=== PATIENT | male | born 1960 | race American Indian/Alaskan Native ===

== ENCOUNTER 2018-01-20 18:01 | Inpatient (IN) | payer OTHER ==
[2018-01-20] MEDS ORDERED: Albuterol-Ipratrop 3 mg / 0.5 (3 ml) UD IH STA (18:29)
--- NOTE | 2018-01-20 18:36 | ED PDOC ---
Arrival/HPI - General Chief Complaint: Shortness Of Breath Time Seen by Provider: 01/20/18 18:13 Historian: Patient - History of Present Illness Narrative History of Present Illness (Text): 01/20/18 18:27 57 y/o M w/ h/o of CHF and paroxysmal atrial fibrillation, presents to the Emergency Department accompanied by his mother complaining of worsening shortness of breath since 01/13/2018. Patient states dyspnea is worsened with exertion, noting with difficulty ambulating up stairs. He visited his PMD last week who referred him to Dr. Esteban(cardiology) for cardiac evaluation. Because of recent plans of moving to [place], patient desired to postpone further diagnostic testing after his move. However, due to worsening symptoms in addition to noting a distended abdomen prompted him to present for further evaluation. He denies any associated chest pain, abdominal pain, nausea or vomiting. He denies any cough, fever or chills. He denies any lower extremity edema. He denies smoking cigarettes,drinking alcohol or any substance use. Specialist:Dr. Oquendo(cardiology) Time/Duration: 1 week Symptom Onset: Gradual Symptom Course: Unchanged Quality: Tightness, Fullness Severity Level: Moderate Activities at Onset: Rest Context: Home Past Medical History - Provider Review Nursing Documentation Reviewed: Yes - Travel History Have you recently traveled outside US w/in the past 3 mons?: No - Infectious Disease Hx of Infectious Diseases: None - Tetanus Immunization Tetanus Immunization: Unknown - Cardiac Hx Cardiac Disorders: Yes (CARDIOMEGALY) Hx Cardiac Arrhythmia: Yes Hx Congestive Heart Failure: Yes Hx Hypertension: Yes - Pulmonary Hx Respiratory Disorders: No - Neurological Hx Neurological Disorder: No - HEENT Hx HEENT Disorder: No - Renal Hx Renal Disorder: No - Endocrine/Metabolic Hx Endocrine Disorders: No - Hematological/Oncological Hx Blood Disorders: No - Integumentary Hx Dermatological Disorder: Yes (TATTOOS ARMS) - Musculoskeletal/Rheumatological Hx Musculoskeletal Disorders: Yes Hx Falls: No Hx Gout: Yes - Gastrointestinal Hx Gastrointestinal Disorders: No - Genitourinary/Gynecological Hx Genitourinary Disorders: No - Psychiatric Hx Psychophysiologic Disorder: No Hx Depression: No Hx Emotional Abuse: No Hx Physical Abuse: No Hx Substance Use: No - Past Surgical History Past Surgical History: No Previous - Suicidal Assessment Feels Threatened In Home Enviroment: No Family/Social History - Physician Review Nursing Documentation Reviewed: Yes Family/Social History: No Known Family HX Smoking Status: Former Smoker Hx Alcohol Use: Yes ([employer]EEK[employer]CO[employer]INKS H/O QUIT) Hx Substance Use: No Hx Substance Use Treatment: No Allergies/Home Meds Allergies/Adverse Reactions: Allergies No Known Allergies Allergy (Verified 08/06/14 11:38) Home Medications: Home Meds Medication Instructions Recorded Confirmed Allopurinol 300 mg PO DAILY 01/08/14 01/21/18 Atenolol 100 mg PO DAILY 01/08/14 01/21/18 Furosemide [Lasix] 160 mg PO BID 01/08/14 01/21/18 Potassium Chloride [Klor-Con M20] 20 meq PO BID 01/08/14 01/21/18 Warfarin [Coumadin] 8 mg PO DAILY 08/06/14 01/21/18 diltiaZEM [Cardizem] 60 mg PO TID 08/06/14 01/21/18 Review of Systems - Physician Review All systems were reviewed & negative as marked: Yes - Review of Systems Constitutional: absent: Fevers Respiratory: SOB. absent: Cough Cardiovascular: CURIEL. absent: Chest Pain, Edema Gastrointestinal: absent: Abdominal Pain, Diarrhea, Nausea, Vomiting Musculoskeletal: absent: Back Pain, Neck Pain Neurological: absent: Headache, Dizziness Physical Exam Vital Signs Reviewed: Yes Vital Signs Temp Pulse Resp BP Pulse Ox 01/20/18 21:30 140/83 01/20/18 19:16 85 20 145/92 H 95 01/20/18 18:59 18 98 01/20/18 18:11 97.5 F L 77 18 135/66 95 Temperature: Afebrile Blood Pressure: Normal Pulse: Regular Respiratory Rate: Normal Appearance: Positive for: Well-Appearing, Non-Toxic, Comfortable Pain Distress: None Mental Status: Positive for: Alert and Oriented X 3 - Systems Exam Head: Present: Atraumatic, Normocephalic Pupils: Present: PERRL Extroacular Muscles: Present: EOMI Conjunctiva: Present: Normal Mouth: Present: Moist Mucous Membranes Neck: Present: Normal Range of Motion Respiratory/Chest: Present: Clear to Auscultation, Decreased Breath Sounds, Other (no tenderness to chest wall). No: Respiratory Distress, Accessory Muscle Use Cardiovascular: Present: Regular Rate and Rhythm, Normal S1, S2. No: Murmurs Abdomen: Present: Distention (+firm). No: Tenderness, Peritoneal Signs Back: Present: Normal Inspection Upper Extremity: Present: Normal Inspection. No: Cyanosis, Edema Lower Extremity: Present: Normal Inspection, NORMAL PULSES, Capillary Refill < 2 s. No: Edema, CALF TENDERNESS, Erythema Neurological: Present: GCS=15, CN II-XII Intact, Speech Normal Skin: Present: Warm, Dry, Normal Color. No: Rashes Psychiatric: Present: Alert, Oriented x 3, Normal Insight, Normal Concentration Medical Decision Making ED Course and Treatment: 01/20/18 18:39 Impression: 57 year old male presents to the Emergency Department complaining of CURIEL. Differential Diagnosis included but are not limited to: CHF exacerbation Arrhythmia ACS Pneumonia PE Plan: -- VBG --Lasix -- Labs -- CXR -- Duoneb -- Urinalysis -- Reassess and disposition Prior Visits: Notes and results from previous visits were reviewed. Progress Notes: 01/20/18 22:14 Labs reviewed and BNP noted to be elevated. Lasix ordered. Patient reassessed and reports mild relief from nebulizer treatment. Discussion of case with Dr. Pacheco(house staff) who accepts patient for admission. Patient updated on plan for admission and is in agreement. - Lab Interpretations Lab Results: 01/21/18 08:20 01/21/18 08:20 Lab Results 01/21/18 09:00: TSH 3rd Generation 3.54 01/21/18 08:20: PT 35.6 H, INR 3.03 01/21/18 08:20: Hemoglobin A1c 6.2 01/21/18 08:20: Sodium 142, Chloride 102, Potassium 5.1 H, Carbon Dioxide 32, Anion Gap 13, BUN 24 H, Creatinine 1.3, Est GFR ( Amer) > 60, Est GFR ( Non-Af Amer) 57, Random Glucose 171 H, Calcium 8.8, Phosphorus 3.8, Magnesium 2.5 H, Total Bilirubin 0.8, AST 14 L D, ALT 12, Alkaline Phosphatase 132 H, Troponin I < 0.01, Total Protein 7.4, Albumin 3.7, Globulin 3.7, Albumin/ Globulin Ratio 1.0 L, Triglycerides 86, Cholesterol 132, LDL Cholesterol Direct 86, HDL Cholesterol 21 L 01/21/18 08:20: WBC 6.5, RBC 6.63 H, Hgb 13.4 L, Hct 49.8, MCV 75.1 L, MCH 20.2 L, MCHC 26.9 L, RDW 20.2 H, Plt Count 126, Gran % 92.9 H, Lymph % (Auto) 5.6 L, [place] % (Auto) 1.1, Eos % (Auto) 0.2 L, Baso % (Auto) 0.2, Gran # 6.03, Lymph # ( Auto) 0.4 L, [place] # (Auto) 0.1, Eos # (Auto) 0.0, Baso # (Auto) 0.01, Neutrophils % (Manual) 92 H, Band Neutrophils % 1, Lymphocytes % (Manual) 6 L, Monocytes % (Manual) 1, Platelet Evaluation Normal, Hypochromasia 2+ 01/21/18 07:24: POC Glucose (mg/dL) 192 H 01/21/18 06:36: pCO2 54 H, pO2 46.0 L, HCO3 31.2 H, ABG pH 7.37, ABG Total CO2 32.9 H, ABG O2 Saturation 79.8 L, ABG O2 Content 15.3, ABG Base Excess 4.4 H, ABG Hemoglobin 14.3, ABG Carboxyhemoglobin 3.7 H, POC ABG HHb (Measured) 19.2 H , ABG Methemoglobin 1.2, ABG O2 Capacity 19.2, Hgb O2 Saturation 76.0 L, FiO2 21.0 01/21/18 01:15: Free T4 1.00, Thyroxine (T4) 7.2 01/21/18 01:15: Troponin I < 0.01, Free T3 pg/mL 3.37 01/21/18 00:45: PT 34.4 H, INR 2.95, APTT 45.1 H 01/20/18 21:39: pCO2 70 H, pO2 26.0 L*, HCO3 36.9 H, ABG pH 7.33 L, ABG Total CO2 39.0 H, ABG O2 Saturation 49.5 L, ABG O2 Content 8.9 L, ABG Base Excess 8.3 H, ABG Hemoglobin 13.2, ABG Carboxyhemoglobin 2.7 H, POC ABG HHb (Measured) 48.7 H, ABG Methemoglobin 0.7, ABG O2 Capacity 18.0, Hgb O2 Saturation 47.8 L, FiO2 21.0 01/20/18 19:23: Urine Color Yellow, Urine Appearance Clear, Urine pH 6.0, Ur Specific [place] 1.010, Urine Protein Negative, Urine Glucose (UA) Negative, Urine Ketones Negative, Urine Blood Negative, Urine Nitrate Negative, Urine Bilirubin Negative, Urine Urobilinogen 0.2, Ur Leukocyte Esterase Negative 01/20/18 19:00: Troponin I < 0.01 01/20/18 19:00: TSH 3rd Generation 5.01 H 01/20/18 19:00: D-Dimer, Quantitative < 200 01/20/18 19:00: Sodium 143, Chloride 102, Potassium 4.9, Carbon Dioxide 35 H, Anion Gap 11, BUN 25 H, Creatinine 1.4, Est GFR ( Amer) > 60, Est GFR ( Non-Af Amer) 53, Random Glucose 96, Calcium 8.5, Magnesium 2.6 H, Total Bilirubin 0.7, AST 34, ALT 10, Alkaline Phosphatase 123, NT-Pro-B Natriuret Pep 943 H, Total Protein 7.5, Albumin 3.8, Globulin 3.6, Albumin/Globulin Ratio 1.1 01/20/18 19:00: WBC 7.3, RBC 6.78 H, Hgb 13.8 L, Hct 51.8, MCV 76.4 L, MCH 20.4 L, MCHC 26.6 L, RDW 20.8 H, Plt Count 125, Gran % 70.1 H, Lymph % (Auto) 17.4 L , [place] % (Auto) 4.0, Eos % (Auto) 8.0 H, Baso % (Auto) 0.5, Gran # 5.11, Lymph # (Auto) 1.3, [place] # (Auto) 0.3, Eos # (Auto) 0.6, Baso # (Auto) 0.04 01/20/18 18:40: pO2 42, VBG pH 7.28 L, VBG pCO2 80.0 H*, VBG HCO3 37.6 H, VBG Total CO2 40.1 H, VBG O2 Sat (Calc) 69.6 H, VBG Base Excess 7.7 H, VBG Potassium 5.1, Sodium 141.0, Chloride 103.0, Glucose 95, Lactate 1.7, FiO2 21.0 , Venous Blood Potassium 5.1 - RAD Interpretation Radiology Orders: 01/20/18 18:30 CHEST PORTABLE [RAD] Stat - Medication Orders Current Medication Orders: Albuterol/Ipratropium (Duoneb 3 Mg/0.5 Mg (3 Ml) Ud) 3 ml IH Q2H PRN PRN Reason: Shortness of Breath Albuterol/Ipratropium (Duoneb 3 Mg/0.5 Mg (3 Ml) Ud) 3 ml IH [id number] [facility] Last Admin: 01/21/18 13:55 Dose: 3 ml Allopurinol (Zyloprim) 300 mg PO DAILY [facility] Last Admin: 01/21/18 10:10 Dose: 300 mg Diltiazem HCl (Cardizem) 60 mg PO TID [facility] Last Admin: 01/21/18 13:20 Dose: 60 mg [facility] Pulse and Blood Pressure Document 01/21/18 13:20 (Rec: 01/21/18 13:20 [place] [id number]) Pulse Pulse Rate (60-90) 85 Blood Pressure Blood Pressure (100/60-150/90) 133/79 Famotidine (Pepcid) 40 mg PO HS MARIAH Furosemide (Lasix) 40 mg IVP Q12 [facility] Last Admin: 01/21/18 10:13 Dose: Comments: not given MAR Blood Pressure Document 01/21/18 10:13 (Rec: 01/21/18 10:14 [place] [id number]) Blood Pressure Blood Pressure (100/60-150/90) 154/87 IVP Administration Document 01/21/18 10:13 (Rec: 01/21/18 10:14 [place] [id number]) Charges for Administration # of IVP Administrations 0 Insulin Human Regular (Humulin R Low) 0 units SC ACHS MARIAH PRN Reason: Protocol Last Admin: 01/21/18 13:04 Dose: Not Given Non-Admin Reason: Patient in Cardiology Lactic Acid (Lac-Hydrin 12% Lotion (225 G)) 0 gm EXT BID MARIAH Methylprednisolone (Solu-Medrol) 40 mg IVP Q12 [facility] Last Admin: 01/21/18 10:14 Dose: 40 mg IVP Administration Document 01/21/18 10:14 (Rec: 01/21/18 10:14 [place] [id number]) Charges for Administration # of IVP Administrations 1 Metoprolol Succinate (Toprol Xl) 100 mg PO BRK MARIAH Last Admin: 01/21/18 08:27 Dose: 100 mg MAR Pulse and Blood Pressure Document 01/21/18 08:27 DH (Rec: 01/21/18 08:27 [id number] Pulse Pulse Rate (60-90) 84 Blood Pressure Blood Pressure (100/60-150/90) 143/88 Warfarin Sodium (Coumadin) 8 mg PO 1800 MARIAH PRN Reason: Protocol Discontinued Medications Albuterol/Ipratropium (Duoneb 3 Mg/0.5 Mg (3 Ml) Ud) 3 ml IH STAT STA Stop: 01/20/18 18:30 Last Admin: 01/20/18 18:41 Dose: 3 ml Furosemide (Lasix) 20 mg IVP STAT STA Stop: 01/20/18 20:24 Last Admin: 01/20/18 21:30 Dose: 20 mg MAR Blood Pressure Document 01/20/18 21:30 CNR (Rec: 01/20/18 21:30 CNR [id number]) Blood Pressure Blood Pressure (100/60-150/90) 140/83 IVP Administration Document 01/20/18 21:30 CNR (Rec: 01/20/18 21:30 CNR [id number]) Charges for Administration # of IVP Administrations 1 - Scribe Statement The provider has reviewed the documentation as recorded by the Scribe Sundar Mcdonough. All medical record entries made by the Scribe were at my direction and personally dictated by me. I have reviewed the chart and agree that the record accurately reflects my personal performance of the history, physical exam, medical decision making, and the department course for this patient. I have also personally directed, reviewed, and agree with the discharge instructions and disposition. Disposition/Present on Arrival - Present on Arrival Any Indicators Present on Arrival: No History of DVT/PE: No History of Uncontrolled Diabetes: No Urinary Catheter: No History of Decub. Ulcer: No History Surgical Site Infection Following: None - Disposition Have Diagnosis and Disposition been Completed?: Yes Diagnosis: CHF exacerbation Disposition: HOSPITALIZED Disposition Time: 22:18 Patient Plan: Admission Condition: STABLE
[2018-01-20 18:47] LABS: VENOUS BLOOD GAS BASE EXCESS 7.7 mmol/L (0.0-2.0); VENOUS BLOOD GAS PO2 42 mm/Hg (30-55); VENOUS BLOOD PH 7.28 (7.32-7.43)
[2018-01-20 19:07] LABS: BASO # 0.04 K/mm3 (0.0-2.0); BASO % 0.5 % (0.0-3.0); EOS # 0.6 (0.0-0.7); GRAN # 5.11 (1.4-6.5); GRAN % 70.1 % (50.0-68.0); HEMOGLOBIN 13.8 g/dL (14.0-18.0); LYMPH # 1.3 (1.2-3.4); LYMPH % 17.4 % (22.0-35.0); MEAN CELL VOLUME 76.4 fl (80.0-105.0); MEAN CORPUSCULAR HEMOGLOBIN 20.4 pg (25.0-35.0); MEAN CORPUSCULAR HGB CONC 26.6 g/dl (31.0-37.0); MONO # 0.3 (0.1-0.6); PLATELET COUNT 125 10^3/uL (120.0-450.0); RBC 6.78 10^6/uL (3.5-6.1); RED CELL DISTRIBUTION WIDTH 20.8 % (11.5-14.5); WHITE BLOOD COUNT 7.3 10^3/ul (4.5-11.0)
[2018-01-20 19:18] LABS: ALB/GLOB RATIO 1.1 (1.1-1.8); ALBUMIN 3.8 g/dL (3.0-4.8); ALT/SGPT 10 U/L (7-56); AST/SGOT 34 U/L (17-59); BLOOD UREA NITROGEN 25 mg/dL (7-21); CALCIUM 8.5 mg/dL (8.4-10.5); GFR NON-AFRICAN AMERICAN 53
[2018-01-20 19:27] LABS: B-TYPE NATRIURETIC PEPTIDE 943 pg/mL (0-450)
[2018-01-20 19:27] LABS: URINE APPEARANCE CLEAR (CLEAR); URINE BILIRUBIN NEGATIVE (NEGATIVE); URINE BLOOD NEGATIVE (NEGATIVE); URINE COLOR YELLOW (YELLOW); URINE GLUCOSE (UA) NEGATIVE (NEGATIVE); URINE LEUKOCYTE ESTERASE NEGATIVE Leu/uL (NEGATIVE); URINE PROTEIN NEGATIVE mg/dL (<30 mg/dL); URINE UROBILINOGEN 0.2 E.U./dL (<1 E.U./dL)
[2018-01-20 21:42] LABS: ARTERIAL BLOOD GAS HCO3 36.9 mmol/L (21-28); ARTERIAL BLOOD GAS HEMOGLOBIN 13.2 g/dL (11.7-17.4); ARTERIAL BLOOD GAS O2 CONTENT 8.9 ML/dl (15-23); ARTERIAL BLOOD GAS O2 SAT 49.5 % (95-98); ARTERIAL BLOOD GAS PCO2 70 mm/Hg (35-45); ARTERIAL BLOOD GAS PH 7.33 (7.35-7.45)
[2018-01-20] MEDS: Insulin Reg-LOW-Coverage SC SCH (22:58)
[2018-01-20] MEDS ORDERED: Albuterol-Ipratrop 3 mg / 0.5 (3 ml) UD IH PRN (23:54)
--- NOTE | 2018-01-21 00:10 | CP.PCM.HP ---
<Rebeca Rodriguez - Last Filed: 01/21/18 03:58> History of Present Illness - History of Present Illness History of Present Illness: Rebeca Rodriguez, PGY-1 H&P for Hospitalist Service This is a 57 year old male with PMH of CHF (EF in 2014 64%), paroxysmal afib on warfarin, DM, and HTN presenting to the ED for one week history of SOB. Symptoms started last and patient says he has trouble walking a few steps and gets short of breath. He went to his PMD on Wednesday who referred to Dr. Esteban for cardiology work up. However patient was unable to follow up. Patient states his last hospital admission for CHF exacerbation was in 2010. He is planing to move to [place] soon. At this time, he denies CP, SOB, fevers, headaches, nausea, vomiting, chills, abdominal pain, back pain, urinary complaints, numbness, tingling, swelling, recent travel and recent sickness. 12 point ROS noted here, otherwise unremarkable. In ED, CXR showed cardiomegaly and vascular congestion (interpreted by me). BNP was 943, troponin <0.01. ABG showed pH of 7.33, CO2 70 and bicarb of 36.9. Given 20mg IVP Lasix and duonebs. PMD: Dr. Bhatia PMH: as above SH: denies smoking, drinking and drugs Sx: denies surgeries FH: father had bladder cancer All: NKDA Meds: Lasix 80mg BID, diltiazem 60mg q8, warfarin 8mg daily, glimiperide 4mg BID , carvedilol 25mg BID Present on Admission - Present on Admission Any Indicators Present on Admission: No Past Patient History - Infectious Disease Hx of Infectious Diseases: None - Tetanus Immunizations Tetanus Immunization: Unknown - Past Social History Smoking Status: Former Smoker - CARDIAC Hx Cardiac Disorders: Yes (CARDIOMEGALY) Hx Congestive Heart Failure: Yes Hx Hypertension: Yes - PULMONARY Hx Respiratory Disorders: No - NEUROLOGICAL Hx Neurological Disorder: No - HEENT Hx HEENT Problems: No - RENAL Hx Chronic Kidney Disease: No - ENDOCRINE/METABOLIC Hx Endocrine Disorders: Yes Hx Diabetes Mellitus Type 2: Yes - HEMATOLOGICAL/ONCOLOGICAL Hx Blood Disorders: No - INTEGUMENTARY Hx Dermatological Problems: No - MUSCULOSKELETAL/RHEUMATOLOGICAL Hx Musculoskeletal Disorders: Yes Hx Gout: Yes Hx Unsteady Gait: No - GASTROINTESTINAL Hx Gastrointestinal Disorders: No - GENITOURINARY/GYNECOLOGICAL Hx Genitourinary Disorders: No - PSYCHIATRIC Hx Psychophysiologic Disorder: No Hx Depression: No Hx Emotional Abuse: No Hx Physical Abuse: No - SURGICAL HISTORY Hx Surgeries: No Meds Allergies/Adverse Reactions: Allergies Allergy/AdvReac Type Severity Reaction Status Date / Time No Known Allergies Allergy Verified 08/06/14 11:38 Physical Exam - Constitutional Appears: No Acute Distress - Head Exam Head Exam: ATRAUMATIC, NORMAL INSPECTION - Eye Exam Eye Exam: EOMI Pupil Exam: PERRL - ENT Exam ENT Exam: Mucous Membranes Moist - Respiratory Exam Respiratory Exam: absent: Respiratory Distress Additional comments: decreased breath sounds, expiratory wheezing appreciated B/L - Cardiovascular Exam Cardiovascular Exam: Irregular Rhythm, +S1, +S2. absent: Tachycardia - GI/Abdominal Exam GI & Abdominal Exam: Distended, Normal Bowel Sounds. absent: Firm, Guarding Additional comments: globular abdomen - Extremities Exam Extremities exam: Positive for: normal inspection. Negative for: calf tenderness - Neurological Exam Neurological exam: Alert, Oriented x3 - Skin Skin Exam: Normal Color, Warm Results - Vital Signs Recent Vital Signs: Last Vital Signs Temp 97.5 F L 01/20/18 18:11 Pulse 88 01/20/18 22:59 Resp 16 01/20/18 22:59 BP 143/85 01/20/18 22:59 Pulse Ox 95 01/20/18 22:59 - Labs Result Diagrams: 01/20/18 19:00 01/20/18 19:00 Labs: Laboratory Results - last 24 hr 01/20/18 21:39 pCO2 70 H pO2 26.0 L* HCO3 36.9 H ABG pH 7.33 L ABG Total CO2 39.0 H ABG O2 Saturation 49.5 L ABG O2 Content 8.9 L ABG Base Excess 8.3 H ABG Hemoglobin 13.2 ABG Carboxyhemoglobin 2.7 H POC ABG HHb (Measured) 48.7 H ABG Methemoglobin 0.7 ABG O2 Capacity 18.0 Hgb O2 Saturation 47.8 L FiO2 21.0 Assessment & Plan - Assessment and Plan (Free Text) Assessment: This is a 57 year old male with PMH of CHF (EF in 2015 64%), paroxysmal afib on warfarin, DM, and HTN presenting to the hospital for management of one week history of SOB. Patient admitted to tele. Plan: COPD exacerbation -ABG showed pH 7.33, CO2 70, bicarb 36.9 and O2 26 on FiO2 of 21% -respiratory acidosis with contraction metabolic alkalosis (home dose of lasix 80mg BID) -holding lasix for now, will re-evaluate in AM -CXR showed cardiomegaly with pulmonary congestion (interpreted by me) -continue bipap (patient refusing) -continue duonebs reynaldo and prn -continue azithromax -continue solumedrol 40mg q12 IVP CHF exacerbation -ABG more concerning for COPD exacerbation -Echo in 2014 showed EF of 64% -echo pending -BNP in the 900s -holding lasix for now, will re-evaluate in AM -troponin trending -Cardiology on consult, Dr. Loya Hx of paroxysmal afib -currently rate controlled. Irregular rhythm -monitoring on tele -continue warfarin -continue cardizem -PT/INR pending Hx DM -continue insulin ACHS Hx HTN -continue toprol PPX with pepcid and SCD (patient refusing) Patient seen and case discussed with attending, Dr. Anne Pacheco <Anne Pacheco N - Last Filed: 01/22/18 06:36> Results - Vital Signs Recent Vital Signs: Last Vital Signs Temp 97.8 F 01/22/18 00:01 Pulse 82 01/22/18 03:00 Resp 18 01/22/18 00:01 BP 126/66 01/22/18 00:01 Pulse Ox 97 01/22/18 00:01 - Labs Result Diagrams: 01/21/18 08:20 01/21/18 08:20 Labs: Laboratory Results - last 24 hr 01/21/18 01/21/18 01/21/18 15:00 16:00 16:22 POC Glucose (mg/dL) 163 H Troponin I < 0.01 Stool Occult Blood Negative 01/21/18 21:18 POC Glucose (mg/dL) 178 H Troponin I Stool Occult Blood
[2018-01-21 00:29] VITALS: BMI 48.5
[2018-01-21] MEDS: MethylPREDNISolone 40 mg Vial IVP SCH ×3 (00:41→22:12)
[2018-01-21 01:11] LABS: INR 2.95; PARTIAL THROMBOPLASTIN TIME 45.1 Seconds (25.1-36.5); PROTHROMBIN TIME 34.4 SECONDS (9.4-12.5)
[2018-01-21 01:48] LABS: TROPONIN I < 0.01 ng/mL
[2018-01-21 01:58] LABS: T4 7.2 ug/dL (5.5-11.0)
[2018-01-21] MEDS: Albuterol-Ipratrop 3 mg / 0.5 (3 ml) UD IH SCH ×4 (03:00→20:20)
[2018-01-21 06:40] LABS: ARTERIAL BLOOD GAS HCO3 31.2 mmol/L (21-28); ARTERIAL BLOOD GAS HEMOGLOBIN 14.3 g/dL (11.7-17.4); ARTERIAL BLOOD GAS O2 CAPACITY 19.2 mL/dl (16-24); ARTERIAL BLOOD GAS O2 CONTENT 15.3 ML/dl (15-23); ARTERIAL BLOOD GAS O2 SAT 79.8 % (95-98); ARTERIAL BLOOD GAS PCO2 54 mm/Hg (35-45); ARTERIAL BLOOD GAS PH 7.37 (7.35-7.45); ARTERIAL BLOOD GAS TCO2 32.9 mmol.L (22-28)
[2018-01-21] MEDS: Insulin Reg-LOW-Coverage SC SCH ×4 (08:24→22:00)
[2018-01-21] MEDS: Metoprolol Succinate 100 mg XL Tab PO SCH (08:27)
[2018-01-21 08:34] LABS: BASO # 0.01 K/mm3 (0.0-2.0); BASO % 0.2 % (0.0-3.0); EOS % 0.2 % (1.5-5.0); GRAN # 6.03 (1.4-6.5); GRAN % 92.9 % (50.0-68.0); HEMOGLOBIN 13.4 g/dL (14.0-18.0); LYMPH # 0.4 (1.2-3.4); LYMPH % 5.6 % (22.0-35.0); MEAN CELL VOLUME 75.1 fl (80.0-105.0); MEAN CORPUSCULAR HEMOGLOBIN 20.2 pg (25.0-35.0); MEAN CORPUSCULAR HGB CONC 26.9 g/dl (31.0-37.0); MONO # 0.1 (0.1-0.6); MONO % 1.1 % (1.0-6.0); PLATELET COUNT 126 10^3/uL (120.0-450.0); RBC 6.63 10^6/uL (3.5-6.1); RED CELL DISTRIBUTION WIDTH 20.2 % (11.5-14.5); WHITE BLOOD COUNT 6.5 10^3/ul (4.5-11.0)
[2018-01-21 08:41] LABS: INR 3.03; PROTHROMBIN TIME 35.6 SECONDS (9.4-12.5)
[2018-01-21 08:52] LABS: ALBUMIN 3.7 g/dL (3.0-4.8); ALT/SGPT 12 U/L (7-56); AST/SGOT 14 U/L (17-59); BLOOD UREA NITROGEN 24 mg/dL (7-21); CALCIUM 8.8 mg/dL (8.4-10.5); GFR NON-AFRICAN AMERICAN 57; HDL CHOLESTEROL 21 mg/dL (29-60)
[2018-01-21 08:56] LABS: TROPONIN I < 0.01 ng/mL
[2018-01-21 08:57] LABS: LDL CHOLESTEROL 86 mg/dL (0-129)
[2018-01-21 10:34] LABS: BAND 1 % (0-2); LYMPHOCYTE 6 % (22.0-35.0); MONOCYTE 1 % (1.0-6.0); NEUTROPHIL 92 % (50.0-70.0)
[2018-01-21 10:35] LABS: HYPOCHROMIA 2+; PLATELET ESTIMATE NORMAL (NORMAL)
--- NOTE | 2018-01-21 10:42 | CON ---
DATE: 01/21/2018 CONSULTATION INDICATION: Shortness of breath. HISTORY OF PRESENT ILLNESS: This is a 57-year-old obese male, admitted with a 1-week history of increasing dyspnea on exertion. There was no chest pain, orthopnea, PND, syncope, palpitations, claudication. There is chronic lower extremity edema. There is no fever, chills, cough, sputum production, hemoptysis, abdominal pain, nausea, vomiting, diarrhea, constipation, melena. He does note increased abdominal girth recently. This morning, he is comfortable sitting in a chair without symptoms. PAST MEDICAL HISTORY: His past medical history is notable for a questionable diagnosis of cardiomyopathy based on a cardiac catheterization at [facility] in 2012, which also showed normal coronaries. He was admitted to [facility]. In 2014, an echocardiogram and MUGA scan showed normal LV function, but he continues to be treated for cardiomyopathy. He has a history of paroxysmal atrial fibrillation, diabetes, hypertension. He is a former smoker and former alcohol user. There is no history of rheumatic fever, myocardial infarction, angina, stroke, TIA. MEDICATIONS AT THE TIME OF ADMISSION: Include allopurinol, atenolol, diltiazem, warfarin, Lasix, potassium chloride, Zaroxolyn. ALLERGIES: THERE ARE NO MEDICATION ALLERGIES REPORTED. SOCIAL HISTORY: He lives at home. He is a roll off driver. He is planning to move to [place]. He no longer smokes. He denies alcohol and drugs. FAMILY HISTORY: Not notable for coronary artery disease. REVIEW OF SYSTEMS: Ten-point review of systems otherwise unremarkable except as noted above. PHYSICAL EXAMINATION: GENERAL: He is a well-developed male, in no acute distress, sitting in his chair on telemetry. VITAL SIGNS: Notable for sinus rhythm at 84 beats per minute. He is afebrile. Blood pressure 143/88, respirations 16-18, O2 sats 95-98% on room air. HEENT: Exam reveals no neck vein distention, thyromegaly or carotid bruit. Mucous membranes moist. Conjunctivae pink. NECK: Supple. LUNGS: Lung decker, scattered rhonchi. HEART: Examination of the heart revealed normal first and second heart sounds. Heart sounds are somewhat distant. ABDOMEN: Protuberant and tense. There is no tenderness, mass, organomegaly appreciated. No CVA tenderness. EXTREMITY: Reveals chronic edema with skin changes. NEUROLOGICAL: Awake, alert and oriented. PSYCHIATRIC: Normal as to mood and affect. LABORATORY DATA AND IMAGING: Chest x-ray is a portable study. It is not interpreted yet. Increased markings, congestive heart failure, COPD by my interpretation. EKG is not available at this time. I will track it down. An echocardiogram in 2014 reveals a very limited study. The LV looked normal in the views that were obtained. A MUGA scan in 01/2014 revealed normal left ventricular function. LV ejection fraction 65%. White count normal, hemoglobin 13.8, hematocrit 51.8, platelet count 125,000. PT 34.4, INR 2.95, PTT 45.1. D-dimer less than 200. Blood gases are noted. Electrolytes unremarkable. BUN 25, creatinine 1.4, calcium 8.5, magnesium 2.6. LFTs unremarkable. Two troponins are negative. BNP is 943. Thyroid functions are unremarkable except that TSH is elevated at 5.01. Urinalysis is noted. It appears unremarkable. ASSESSMENT: Gabino Szymanski is a 57-year-old man with dyspnea on exertion, history of chronic obstructive pulmonary disease, cigarette smoking, history of cardiomyopathy, but normal ejection fraction when evaluated in 2014. He also has increasing abdominal girth and a tense abdomen, probably some ascites, which also needs evaluation. He is admitted to telemetry. I will hold the warfarin and monitor INRs. He is getting IV Lasix. I will monitor inputs and outputs. Check stool for occult blood. He is getting metoprolol, allopurinol, methylprednisolone, Pepcid, insulin coverage, albuterol. I would hold diltiazem and utilize beta-huseyin. There is a history of paroxysmal atrial fibrillation, but he is currently in sinus rhythm. I will order an echocardiogram. I will arrange for a nuclear stress test for Wednesday morning. He should have an abdominal ultrasound, and possibly a GI evaluation. He can be out of bed. He can ambulate. I will follow along with you. I will make additional recommendations based on his clinical course. Lowell Loya MD [facility] # [phone] MTDD
--- NOTE | 2018-01-21 11:06 | RAD ---
HISTORY: sob COMPARISON: Chest x-ray performed 08/17/14 TECHNIQUE: Chest, one view. FINDINGS: LUNGS: Moderate interstitial prominence may reflect infection or edema. PLEURA: Probable small right pleural effusion. No definite pneumothorax . CARDIOVASCULAR: Cardiomegaly. OSSEOUS STRUCTURES: Degenerative changes. VISUALIZED UPPER ABDOMEN: Unremarkable. OTHER FINDINGS: None. IMPRESSION: Cardiomegaly. Moderate interstitial prominence may reflect infection or edema. Probable small right pleural effusion.
--- NOTE | 2018-01-21 12:05 | CARD ---
APPROVED REPORT Date of service: 01/21/2018 EKG Measurement Heart [id number] <Conclusion> Sinus rhythm with occasional premature ventricular complexes Left axis deviation Inferior infarct, age undetermined Abnormal ECG
--- NOTE | 2018-01-21 12:12 | CARD ---
APPROVED REPORT Date of service: 01/20/2018 EKG Measurement Heart [id number] <Conclusion> Normal sinus rhythm Left axis deviation Inferior infarct, age undetermined Cannot rule out Anterior infarct, age undetermined Abnormal ECG
--- NOTE | 2018-01-21 13:53 | CP.PCM.CON ---
History of Present Illness - History of Present Illness History of Present Illness: Podiatry consult notes for attending Dr. Schmidt: 57 y/o female patient with PMH of CHF, paroxysmal afib on warfarin, DM, and HTN seen and evaluated at the bed side for b/l dry feet and thickened, elongated and dystrophic toe nails. Patient states that his toe nails bothers him when they elongates but they are not painful. Patient states that he always wear his sneakers and work boots without socks so his feet are very dry. Patient denies any current F/N/V/C. Patient has SOB currently due to his hear failure. Patient denies any other pedal complaint at this time. PMH: CHF, paroxysmal afib on warfarin, DM, and HTN. PSH: None. Allergies: NKDA. Social Hx: Denies smoking, ETOH use or illicit drug use. Review of Systems - Review of Systems Review of Systems: As per HPI Past Patient History - Infectious Disease Hx of Infectious Diseases: None - Tetanus Immunizations Tetanus Immunization: Unknown - Past Social History Smoking Status: Former Smoker - CARDIAC Hx Cardiac Disorders: Yes (CARDIOMEGALY) Hx Congestive Heart Failure: Yes Hx Hypertension: Yes - PULMONARY Hx Respiratory Disorders: No - NEUROLOGICAL Hx Neurological Disorder: No - HEENT Hx HEENT Problems: No - RENAL Hx Chronic Kidney Disease: No - ENDOCRINE/METABOLIC Hx Endocrine Disorders: Yes Hx Diabetes Mellitus Type 2: Yes - HEMATOLOGICAL/ONCOLOGICAL Hx Blood Disorders: No - INTEGUMENTARY Hx Dermatological Problems: No - MUSCULOSKELETAL/RHEUMATOLOGICAL Hx Musculoskeletal Disorders: Yes Hx Gout: Yes Hx Unsteady Gait: No - GASTROINTESTINAL Hx Gastrointestinal Disorders: No - GENITOURINARY/GYNECOLOGICAL Hx Genitourinary Disorders: No - PSYCHIATRIC Hx Psychophysiologic Disorder: No Hx Depression: No Hx Emotional Abuse: No Hx Physical Abuse: No - SURGICAL HISTORY Hx Surgeries: No Meds Allergies/Adverse Reactions: Allergies Allergy/AdvReac Type Severity Reaction Status Date / Time No Known Allergies Allergy Verified 08/06/14 11:38 - Medications Medications: Current Medications Albuterol/Ipratropium (Duoneb 3 Mg/0.5 Mg (3 Ml) Ud) 3 ml IH Q2H PRN PRN Reason: Shortness of Breath Albuterol/Ipratropium (Duoneb 3 Mg/0.5 Mg (3 Ml) Ud) 3 ml IH [id number] [facility]IA[facility] Last Admin: 01/21/18 07:49 Dose: 3 ml Allopurinol (Zyloprim) 300 mg PO DAILY [facility] Last Admin: 01/21/18 10:10 Dose: 300 mg Diltiazem HCl (Cardizem) 60 mg PO TID [facility] Last Admin: 01/21/18 13:20 Dose: 60 mg Famotidine (Pepcid) 40 mg PO HS [facility] Furosemide (Lasix) 40 mg IVP Q12 [facility] Last Admin: 01/21/18 10:13 Dose: Not Given Insulin Human Regular (Humulin R Low) 0 units SC ACHS [facility] PRN Reason: Protocol Last Admin: 01/21/18 13:04 Dose: Not Given Methylprednisolone (Solu-Medrol) 40 mg IVP Q12 [facility] Last Admin: 01/21/18 10:14 Dose: 40 mg Metoprolol Succinate (Toprol Xl) 100 mg PO BRK [facility] Last Admin: 01/21/18 08:27 Dose: 100 mg Warfarin Sodium (Coumadin) 8 mg PO 1800 [facility] PRN Reason: Protocol Physical Exam - Constitutional Appears: Well, Non-toxic - Head Exam Head Exam: ATRAUMATIC, NORMOCEPHALIC - Extremities Exam Additional comments: B/l LE focused exam: Vasc: DP/PT 1/4 B/l. Cap refill < 3 sec in all digits. Temp gradient warm to cool b/l from proximal to distal. Bilateral perimalleolar +1 pitting edema b/l.. Neuro: Gross and protective sensations are intact b/l Derm: No open lesion. No clinical signs of infections. Toe nails elongated, dystrophic, discolored, horn shaped and thickened X 10. Extensive dryness of the feet b/. B/L hyperkeratotic lesions at the plantar medial aspect of the 1st MPJ and the 5th MPJ. B/L pinch callouses. MSK: Mild pain o palpating the nail folds. Muscle power 5/5 in all groups. - Neurological Exam Neurological exam: Alert, Oriented x3 - Psychiatric Exam Psychiatric exam: Normal Affect, Normal Mood Results - Vital Signs Recent Vital Signs: Last Vital Signs Temp 98.5 F 01/21/18 12:00 Pulse 85 01/21/18 13:20 Resp 18 01/21/18 12:00 BP 133/79 01/21/18 13:20 Pulse Ox 95 09/21/18 06:00 - Labs Result Diagrams: 01/21/18 08:20 01/21/18 08:20 Labs: Laboratory Results - last 24 hr 01/20/18 01/21/18 01/21/18 21:39 00:45 01:15 WBC RBC Hgb Hct MCV MCH MCHC RDW Plt Count Gran % Lymph % (Auto) [place] % (Auto) Eos % (Auto) Baso % (Auto) Gran # Lymph # (Auto) [place] # (Auto) Eos # (Auto) Baso # (Auto) Neutrophils % (Manual) Band Neutrophils % Lymphocytes % (Manual) Monocytes % (Manual) Platelet Evaluation Hypochromasia PT 34.4 H INR 2.95 APTT 45.1 H pCO2 70 H pO2 26.0 L* HCO3 36.9 H ABG pH 7.33 L ABG Total CO2 39.0 H ABG O2 Saturation 49.5 L ABG O2 Content 8.9 L ABG Base Excess 8.3 H ABG Hemoglobin 13.2 ABG Carboxyhemoglobin 2.7 H POC ABG HHb (Measured) 48.7 H ABG Methemoglobin 0.7 ABG O2 Capacity 18.0 Hgb O2 Saturation 47.8 L FiO2 21.0 Sodium Potassium Chloride Carbon Dioxide Anion Gap BUN Creatinine Est GFR ( Amer) Est GFR (Non-Af Amer) POC Glucose (mg/dL) Random Glucose Hemoglobin A1c Calcium Phosphorus Magnesium Total Bilirubin AST ALT Alkaline Phosphatase Troponin I < 0.01 Total Protein Albumin Globulin Albumin/Globulin Ratio Triglycerides Cholesterol LDL Cholesterol Direct HDL Cholesterol Free T4 Thyroxine (T4) Free T3 pg/mL 3.37 TSH 3rd Generation 01/21/18 01/21/18 01/21/18 01:15 06:36 07:24 WBC RBC Hgb Hct MCV MCH MCHC RDW Plt Count Gran % Lymph % (Auto) [place] % (Auto) Eos % (Auto) Baso % (Auto) Gran # Lymph # (Auto) [place] # (Auto) Eos # (Auto) Baso # (Auto) Neutrophils % (Manual) Band Neutrophils % Lymphocytes % (Manual) Monocytes % (Manual) Platelet Evaluation Hypochromasia PT INR APTT pCO2 54 H pO2 46.0 L HCO3 31.2 H ABG pH 7.37 ABG Total CO2 32.9 H ABG O2 Saturation 79.8 L ABG O2 Content 15.3 ABG Base Excess 4.4 H ABG Hemoglobin 14.3 ABG Carboxyhemoglobin 3.7 H POC ABG HHb (Measured) 19.2 H ABG Methemoglobin 1.2 ABG O2 Capacity 19.2 Hgb O2 Saturation 76.0 L FiO2 21.0 Sodium Potassium Chloride Carbon Dioxide Anion Gap BUN Creatinine Est GFR ( Amer) Est GFR (Non-Af Amer) POC Glucose (mg/dL) 192 H Random Glucose Hemoglobin A1c Calcium Phosphorus Magnesium Total Bilirubin AST ALT Alkaline Phosphatase Troponin I Total Protein Albumin Globulin Albumin/Globulin Ratio Triglycerides Cholesterol LDL Cholesterol Direct HDL Cholesterol Free T4 1.00 Thyroxine (T4) 7.2 Free T3 pg/mL TSH 3rd Generation 01/21/18 01/21/18 01/21/18 08:20 08:20 08:20 WBC 6.5 RBC 6.63 H Hgb 13.4 L Hct 49.8 MCV 75.1 L MCH 20.2 L MCHC 26.9 L RDW 20.2 H Plt Count 126 Gran % 92.9 H Lymph % (Auto) 5.6 L [place] % (Auto) 1.1 Eos % (Auto) 0.2 L Baso % (Auto) 0.2 Gran # 6.03 Lymph # (Auto) 0.4 L [place] # (Auto) 0.1 Eos # (Auto) 0.0 Baso # (Auto) 0.01 Neutrophils % (Manual) 92 H Band Neutrophils % 1 Lymphocytes % (Manual) 6 L Monocytes % (Manual) 1 Platelet Evaluation Normal Hypochromasia 2+ PT INR APTT pCO2 pO2 HCO3 ABG pH ABG Total CO2 ABG O2 Saturation ABG O2 Content ABG Base Excess ABG Hemoglobin ABG Carboxyhemoglobin POC ABG HHb (Measured) ABG Methemoglobin ABG O2 Capacity Hgb O2 Saturation FiO2 Sodium 142 Potassium 5.1 H Chloride 102 Carbon Dioxide 32 Anion Gap 13 BUN 24 H Creatinine 1.3 Est GFR ( Amer) > 60 Est GFR (Non-Af Amer) 57 POC Glucose (mg/dL) Random Glucose 171 H Hemoglobin A1c 6.2 Calcium 8.8 Phosphorus 3.8 Magnesium 2.5 H Total Bilirubin 0.8 AST 14 L D ALT 12 Alkaline Phosphatase 132 H Troponin I < 0.01 Total Protein 7.4 Albumin 3.7 Globulin 3.7 Albumin/Globulin Ratio 1.0 L Triglycerides 86 Cholesterol 132 LDL Cholesterol Direct 86 HDL Cholesterol 21 L Free T4 Thyroxine (T4) Free T3 pg/mL TSH 3rd Generation 01/21/18 01/21/18 08:20 09:00 WBC RBC Hgb Hct MCV MCH MCHC RDW Plt Count Gran % Lymph % (Auto) [place] % (Auto) Eos % (Auto) Baso % (Auto) Gran # Lymph # (Auto) [place] # (Auto) Eos # (Auto) Baso # (Auto) Neutrophils % (Manual) Band Neutrophils % Lymphocytes % (Manual) Monocytes % (Manual) Platelet Evaluation Hypochromasia PT 35.6 H INR 3.03 APTT pCO2 pO2 HCO3 ABG pH ABG Total CO2 ABG O2 Saturation ABG O2 Content ABG Base Excess ABG Hemoglobin ABG Carboxyhemoglobin POC ABG HHb (Measured) ABG Methemoglobin ABG O2 Capacity Hgb O2 Saturation FiO2 Sodium Potassium Chloride Carbon Dioxide Anion Gap BUN Creatinine Est GFR ( Amer) Est GFR (Non-Af Amer) POC Glucose (mg/dL) Random Glucose Hemoglobin A1c Calcium Phosphorus Magnesium Total Bilirubin AST ALT Alkaline Phosphatase Troponin I Total Protein Albumin Globulin Albumin/Globulin Ratio Triglycerides Cholesterol LDL Cholesterol Direct HDL Cholesterol Free T4 Thyroxine (T4) Free T3 pg/mL TSH 3rd Generation 3.54 Assessment & Plan - Assessment and Plan (Free Text) Assessment: 57 y/o M patient seen and evaluated at the bedside for mycotic painful toe nails and dry feet. Plan: Patient seen and evaluated at the bedside Plan discussed with attending Dr. Schmidt Chart, labs and vitals reviewed; Patient is afebrile , No Leukocytosis Toe nails debrided using sterile nail nipper X 10 Patient tolerated the nail debridement well with no complications Rx; Ammonium lactate 12% cream applied to the feet BID Thank you for consulting podiatry service. - Date & Time Date: 01/21/18 Time: 13:54
[2018-01-21] MEDS ORDERED: Ammonium Lactate 12% Lotion (225 g) EXT SCH (18:00)
[2018-01-21] MEDS: Ammonium Lactate 12% Lotion (225 g) EXT SCH (18:24)
[2018-01-22] MEDS: Albuterol-Ipratrop 3 mg / 0.5 (3 ml) UD IH SCH ×4 (02:10→20:15)
[2018-01-22 07:54] LABS: GRAN # 8.47 (1.4-6.5); GRAN % 92.2 % (50.0-68.0); LYMPH # 0.4 (1.2-3.4); LYMPH % 4.4 % (22.0-35.0); MEAN CELL VOLUME 74.7 fl (80.0-105.0); MEAN CORPUSCULAR HEMOGLOBIN 19.8 pg (25.0-35.0); MEAN CORPUSCULAR HGB CONC 26.5 g/dl (31.0-37.0); MONO # 0.3 (0.1-0.6); MONO % 3.4 % (1.0-6.0); PLATELET COUNT 139 10^3/uL (120.0-450.0); RBC 6.56 10^6/uL (3.5-6.1); WHITE BLOOD COUNT 9.2 10^3/ul (4.5-11.0)
[2018-01-22 08:16] LABS: ALBUMIN 3.6 g/dL (3.0-4.8); ALT/SGPT 10 U/L (7-56); AST/SGOT 13 U/L (17-59); BLOOD UREA NITROGEN 31 mg/dL (7-21); GFR NON-AFRICAN AMERICAN > 60
--- NOTE | 2018-01-22 09:08 | CARD ---
APPROVED REPORT Date of service: 01/21/2018 EXAM: Two-dimensional and M-mode echocardiogram with Doppler and color Doppler. INDICATION Dyspnea 2D DIMENSIONS Left Atrium (2D)4.1 (1.6-4.0cm)IVSd1.2 (0.7-1.1cm) LVDd4.3 (3.9-5.9cm)PWd1.3 (0.7-1.1cm) LVDs2.9 (2.5-4.0cm)FS (%) 32.5 % LVEF (%)61.2 (>50%) M-Mode DIMENSIONS Aortic Root3.80 (2.2-3.7cm)Aortic Cusp Exc.2.20 (1.5-2.0cm) Aortic Valve AoV Peak Vgavndrn617.0cm/Sariah Peak GR.8mmHg Mitral Valve MV E Xmwvouzg667.0cm/sMV A Lfomfwba42.5cm/sE/A ratio1.3 TDI Lateral E' Peak V9.85cm/sMedial E' Peak V6.04cm/sE/Lateral E'11.4 E/Medial E'18.5 Pulmonary Valve PV Peak Guvjqlwe92.8cm/sPV Peak Grad.3mmHg Tricuspid Valve TR Peak [id number]/sRAP [id number] Peak Gr.33mmHg [id number] LEFT VENTRICLE The left ventricle is normal size. There is mild concentric left ventricular hypertrophy. The left ventricular function is normal. The left ventricular ejection fraction is within the normal range. There is normal LV segmental wall motion. RIGHT VENTRICLE The right ventricle is normal size. The right ventricular systolic function is normal. ATRIA The left atrium size is normal. The right atrium size is normal. The interatrial septum is intact with no evidence for an atrial septal defect. AORTIC VALVE The aortic valve is normal in structure. There is no aortic valvular stenosis. MITRAL VALVE The mitral valve is normal in structure. There is no mitral valve regurgitation noted. TRICUSPID VALVE The tricuspid valve is normal in structure. There is mild tricuspid regurgitation. PULMONIC VALVE The pulmonic valve is not well visualized. GREAT VESSELS The aortic root is normal in size. The IVC is normal in size and collapses >50% with inspiration. PERICARDIAL EFFUSION There is no pleural effusion. There is no pericardial effusion. <Conclusion> Technically limited study due to body habitus. Chamber sizes appear within normal limits. LV systolic function appears normal. No gross valvular abnormalities noted.
[2018-01-22] MEDS ORDERED: Albuterol 0.083% Inhal Sol (2.5 mg/3 mL) UD INH STA (09:29)
[2018-01-22] MEDS ORDERED: Sod Polystyrene Sulf 15 gm/60 ml Susp PO STA (09:29)
[2018-01-22] MEDS ORDERED: Insulin Regular 1 UNITS/0.01 ML ML SC STA (09:34)
[2018-01-22] MEDS ORDERED: Dextrose 50% SYRINGE Inj (50 ml) IVP ONE (09:34)
[2018-01-22] MEDS: Metoprolol Succinate 100 mg XL Tab PO SCH (10:26)
[2018-01-22] MEDS: Insulin Reg-LOW-Coverage SC SCH ×4 (10:30→22:00)
[2018-01-22] MEDS: MethylPREDNISolone 40 mg Vial IVP SCH ×2 (11:00→21:41)
[2018-01-22] MEDS: Ammonium Lactate 12% Lotion (225 g) EXT SCH ×2 (11:02→18:28)
--- NOTE | 2018-01-22 11:12 | CP.PCM.PN ---
<Roman Basurto - Last Filed: 01/22/18 15:23> Subjective - Date & Time of Evaluation Date of Evaluation: 01/22/18 Time of Evaluation: 07:00 - Subjective Subjective: Roman Basurto PGY1 Medicine Progress Note for Dr. Ca Patient was seen and examined at bedside this morning. Patient was sitting up in bed watching television. He said that he feels fine. He does not complain of chest pain, shortness of breath, abdominal pain, n/v/d. No overnight changes. Vital signs are stable. A Full 12 point ROS was conducted and unremarkable except as stated above. Objective - Vital Signs/Intake and Output Vital Signs (last 24 hours): Temp Pulse Resp BP Pulse Ox 97.5 F L 90 18 121/74 95 01/22/18 06:00 01/22/18 10:26 01/22/18 06:00 01/22/18 06:00 01/22/18 06:00 Intake and Output: 01/22/18 01/22/18 06:59 18:59 Intake Total 0 Output Total 200 Balance -200 - Medications Medications: Current Medications Albuterol/Ipratropium (Duoneb 3 Mg/0.5 Mg (3 Ml) Ud) 3 ml IH Q2H PRN PRN Reason: Shortness of Breath Albuterol/Ipratropium (Duoneb 3 Mg/0.5 Mg (3 Ml) Ud) 3 ml IH [id number] [facility] Last Admin: 01/22/18 08:20 Dose: 3 ml Allopurinol (Zyloprim) 300 mg PO DAILY [facility] Last Admin: 01/22/18 10:26 Dose: 300 mg Diltiazem HCl (Cardizem) 60 mg PO TID [facility] Last Admin: 01/22/18 10:26 Dose: 60 mg Famotidine (Pepcid) 40 mg PO HS [facility] Last Admin: 01/21/18 22:12 Dose: 40 mg Furosemide (Lasix) 40 mg IVP Q12 [facility] Last Admin: 01/21/18 10:13 Dose: Not Given Insulin Human Regular (Humulin R Low) 0 units SC ACHS [facility] PRN Reason: Protocol Last Admin: 01/22/18 10:30 Dose: 1 unit Lactic Acid (Lac-Hydrin 12% Lotion (225 G)) 0 gm EXT BID [facility] Last Admin: 01/22/18 11:02 Dose: 1 applic Methylprednisolone (Solu-Medrol) 40 mg IVP Q12 [facility] Last Admin: 01/22/18 11:00 Dose: 40 mg Metoprolol Succinate (Toprol Xl) 100 mg PO BRK [facility] Last Admin: 01/22/18 10:26 Dose: 100 mg Warfarin Sodium (Coumadin) 8 mg PO 1800 [facility] PRN Reason: Protocol - Labs Labs: 01/22/18 07:00 01/22/18 07:00 PT 35.6 SECONDS (9.4-12.5) H 01/21/18 08:20 INR 3.03 01/21/18 08:20 APTT 45.1 Seconds (25.1-36.5) H 01/21/18 00:45 - Constitutional Appears: No Acute Distress - Eye Exam Eye Exam: EOMI, Normal appearance, PERRL Pupil Exam: NORMAL ACCOMODATION, PERRL - ENT Exam ENT Exam: Mucous Membranes Moist, Normal Exam - Neck Exam Neck Exam: Full ROM, Normal Inspection. absent: Lymphadenopathy - Respiratory Exam Respiratory Exam: Clear to Ausculation Bilateral, NORMAL BREATHING PATTERN. absent: Decreased Breath Sounds, Rales, Rhonchi, Wheezes, Respiratory Distress - Cardiovascular Exam Cardiovascular Exam: REGULAR RHYTHM, +S1, +S2. absent: Murmur - GI/Abdominal Exam GI & Abdominal Exam: Distended, Normal Bowel Sounds. absent: Tenderness, Pulsatile Mass Additional comments: Obese abdomen. - Extremities Exam Extremities Exam: Full ROM, Normal Capillary Refill. absent: Joint Swelling, Pedal Edema Additional comments: Mycotic toe nails - Back Exam Back Exam: NORMAL INSPECTION - Neurological Exam Neurological Exam: Alert, Awake, Oriented x3 - Psychiatric Exam Psychiatric exam: absent: Agitated Additional comments: Disruptive during interview. - Skin Skin Exam: Dry, Intact, Normal Color, Warm Assessment and Plan - Assessment and Plan (Free Text) Assessment: Patient is a 57 year old male with PMH of CHF (EF in 2015 64%), paroxysmal afib on warfarin, DM, and HTN presenting to the ED on 01/21 for management of x1 week history of SOB. Patient is admitted for questionable cardiomyopathy versus CHF- pEF. Cardiology was consulted. Patient is being monitored on telemetry. Plan: Questionable Cardiomyopathy vs CHF-pEF - c/w lasix 40 mg IVP q12 - c/w duonebs - c/w steroids 40 mg IVP q12 - As per cardio, outpatient nuclear stress test. Upon history, patient has decreased functional tolerance. - Hypercapnia improved on repeat abg - BNP was in the 900s - Echo (01/21): EF 61%. No gross valvular abnormalities noted. - CXR (01/20): cardiomegaly. Moderate interstitial prominence may reflect infection or edema. Probable small right pleural effusion. - Previous cardiac cath in [facility] (2012): normal coronaries. Previous MUGA scan showed normal LV function. - Cardio consulted. Recs appreciated. - trops negative x2 - BiPAP Hyperkalemia - K was 5.6 on 01/22 - Given calcium gluconate, albuterol q2, insulin with D50, kayexalate - repeat K level - EKG stat (01/22): NSR. No peaked T waves or ST changes. - EKG (01/21): NSR. LAD. Distended Abdomen - Abdominal US pending to r/o ascites - LFTs are normal - No GI complaints at this time Hx of paroxysmal afib on coumadin - daily INR - INR is 3.03 currently - currently rate controlled - c/w metoprolol and cardizem - c/w tele monitoring Mycotic Toenails - Podiatry consulted, recs appreciated. - Aluminum lactate cream applied - History of DM DM II - ISS - Accuchecks HTN - c/w metoprolol GI ppx: Pepcid DVT ppx: SCD Diet: HHD (carb consistent) Dispo: Continue to monitor patient on telemetry. Case was discussed and reviewed with Attending Physician, Dr. Ca. <Corwin Ca - Last Filed: 01/22/18 16:41> Objective - Vital Signs/Intake and Output Vital Signs (last 24 hours): Temp Pulse Resp BP Pulse Ox 97.7 F 70 20 129/80 95 01/22/18 12:00 01/22/18 14:07 01/22/18 12:00 01/22/18 12:00 01/22/18 06:00 Intake and Output: 01/22/18 01/22/18 06:59 18:59 Intake Total 0 Output Total 200 Balance -200 - Medications Medications: Current Medications Albuterol/Ipratropium (Duoneb 3 Mg/0.5 Mg (3 Ml) Ud) 3 ml IH Q2H PRN PRN Reason: Shortness of Breath Albuterol/Ipratropium (Duoneb 3 Mg/0.5 Mg (3 Ml) Ud) 3 ml IH [id number] [facility] Last Admin: 01/22/18 13:30 Dose: 3 ml Allopurinol (Zyloprim) 300 mg PO DAILY [facility] Last Admin: 01/22/18 10:26 Dose: 300 mg Diltiazem HCl (Cardizem) 60 mg PO TID [facility] Last Admin: 01/22/18 15:39 Dose: 60 mg Famotidine (Pepcid) 40 mg PO HS [facility] Last Admin: 01/21/18 22:12 Dose: 40 mg Furosemide (Lasix) 40 mg IVP Q12 [facility] Last Admin: 01/21/18 10:13 Dose: Not Given Glimepiride (Amaryl) 2 mg PO DAILY [facility] Last Admin: 01/22/18 15:40 Dose: 2 mg Insulin Human Regular (Humulin R Low) 0 units SC ACHS [facility] PRN Reason: Protocol Last Admin: 01/22/18 15:33 Dose: Not Given Lactic Acid (Lac-Hydrin 12% Lotion (225 G)) 0 gm EXT BID [facility] Last Admin: 01/22/18 11:02 Dose: 1 applic Methylprednisolone (Solu-Medrol) 40 mg IVP Q12 [facility] Last Admin: 01/22/18 11:00 Dose: 40 mg Metoprolol Succinate (Toprol Xl) 100 mg PO BRK [facility] Last Admin: 01/22/18 10:26 Dose: 100 mg Warfarin Sodium (Coumadin) 8 mg PO 1800 [facility] PRN Reason: Protocol - Labs Labs: 01/22/18 07:00 01/22/18 14:10 PT 31.7 SECONDS (9.4-12.5) H 01/22/18 14:10 INR 2.72 01/22/18 14:10 APTT 45.1 Seconds (25.1-36.5) H 01/21/18 00:45 Attending/Attestation - Attestation I have personally seen and examined this patient.: Yes I have fully participated in the care of the patient.: Yes I have reviewed all pertinent clinical information, including history, physical exam and plan: Yes Notes (Text): 01/22/18 16:31 Attending note; Patient seen and examined with resident. Patient is a 57 year old male with PMH of CHF (EF in 2015 64%), possible diastolic dysfunction, paroxysmal afib on warfarin, DM, and HTN is admitted for shortness of breath. Patient with poor compliance with follow-up. Shortness of breath /leg swelling Elevated BNP; acute on chronic diastolic dysfunction. cardiac enzymes 3 negative. EKG showed no acute ST-T changes. Normal sinus rhythm. Cardiology evaluation requested. Nuclear stress test planned for Wednesday. Started on IV Lasix. Echocardiogram showed ejection fraction of 61%. History of A. fib; currently on Coumadin. INR is therapeutic. Obesity; diet, exercise, weight reduction encouraged. Abdominal obesity; patient with a history of alcohol abuse in the past. Abdominal ultrasound ordered. History of smoking; currently stopped smoking few years ago. continue DuoNeb and taper steroid. Dietitian evaluation requested. The diagnosis, follow-up plan discussed with patient and patient's mother in detail. Upon discharge the patient will follow up with PMD Dr. Bhatia. Medication compliance and follow-up insisted in detail.
--- NOTE | 2018-01-22 12:49 | CARD ---
APPROVED REPORT Date of service: 01/22/2018 EKG Measurement Heart [id number] <Conclusion> Normal sinus rhythm with sinus arrhythmia Low voltage QRS Nonspecific ST abnormality Abnormal ECG
[2018-01-22 14:35] LABS: INR 2.72; PROTHROMBIN TIME 31.7 SECONDS (9.4-12.5)
--- NOTE | 2018-01-22 15:31 | PN ---
Copied To: Zac Menon MD Attending MD: Zac Menon MD DATE: 01/22/2018 SUBJECTIVE: The patient is seen lying in bed on telemetry. He states he is comfortable at the present time. He states his dyspnea is improved. Denies any chest pain. CURRENT MEDICATIONS: Include diltiazem 60 mg t.i.d., Coumadin, DuoNeb inhaler, insulin coverage, Lasix 40 mg every 12 hours, Pepcid 40 mg daily, Solu-Medrol 40 mg every 12 hours, Toprol XL 100 mg daily, and Zyloprim. OBJECTIVE: GENERAL: He is a morbidly obese middle-aged man. VITAL SIGNS: His blood pressure is 120/74, pulse of 90 and in sinus, respirations are 16. He is afebrile. HEENT: Thick neck. No JVD. CHEST: Few scattered rhonchi. HEART: PMI displaced laterally with systolic murmur in the left sternal border. ABDOMEN: Soft, morbidly obese with normal bowel sounds. EXTREMITIES: 2+ leg edema. DIAGNOSTIC DATA: Potassium 5.6. BUN and creatinine 31 and 1.2. White count 9.2, hemoglobin and hematocrit 13 and 49 with platelet count of 139,000. Echocardiogram reveals technically limited study. However, his left ventricular size and function appear normal. No gross valvular abnormalities were seen. IMPRESSION: 1. Exertional dyspnea likely multifactorial. 2. History of prior congestive cardiomyopathy with apparent normal left ventricular function at this time. 3. Morbid obesity. 4. History of tobacco abuse. RECOMMENDATIONS: His current medications that will continue for now. A stress test is planned for Wednesday. Continue diuresis as advised. Abdominal ultrasound was performed and results are pending. The need for aggressive weight loss measures were discussed with the patient; however, he feels that this is not necessary at this time. We will be happy to follow along as needed. Zac Menon MD
--- NOTE | 2018-01-22 17:07 | US ---
Date of service: 01/22/2018 HISTORY: distention r/o ascites COMPARISON: None. TECHNIQUE: Sonographic evaluation of the abdomen. FINDINGS: LIVER: Measures 22 cm. Diffusely increased echogenicity of the liver parenchyma. Consistent with fatty infiltration. Smooth contour. No mass. No biliary dilatation. Normal hepatopetal portal venous flow GALLBLADDER: No cholelithiasis. Mild thickening of the gallbladder wall, nonspecific. No pericholecystic fluid. Negative sonographic Cheatham sign. COMMON BILE DUCT: Measures 6 mm. No stones. No dilatation. PANCREAS: Unremarkable as visualized. No mass. No ductal dilatation. RIGHT KIDNEY: Measures 11.4cm. Normal echogenicity. No calculus, mass, or hydronephrosis. LEFT KIDNEY: Measures 12.0cm. Limited visualization due to bowel gas. No hydronephrosis. No mass or calculus. SPLEEN: 15.7. No focal mass. AORTA: Could not be adequately visualized IVC: Could not be adequately visualized OTHER FINDINGS: None. IMPRESSION: Hepatosplenomegaly. Fatty infiltration of the liver. Nonspecific mild thickening of the gallbladder wall without cholelithiasis. No additional abnormality.
[2018-01-23] MEDS: Albuterol-Ipratrop 3 mg / 0.5 (3 ml) UD IH SCH ×4 (02:15→20:23)
[2018-01-23 08:06] LABS: HEMOGLOBIN 13.2 g/dL (14.0-18.0); MEAN CELL VOLUME 75.8 fl (80.0-105.0); MEAN CORPUSCULAR HEMOGLOBIN 20.1 pg (25.0-35.0); MEAN CORPUSCULAR HGB CONC 26.6 g/dl (31.0-37.0); PLATELET COUNT 141 10^3/uL (120.0-450.0); RBC 6.56 10^6/uL (3.5-6.1); RED CELL DISTRIBUTION WIDTH 19.7 % (11.5-14.5); WHITE BLOOD COUNT 13.2 10^3/ul (4.5-11.0)
[2018-01-23 08:11] LABS: INR 2.43; PROTHROMBIN TIME 28.5 SECONDS (9.4-12.5)
[2018-01-23 08:42] LABS: ALBUMIN 3.6 g/dL (3.0-4.8); ALT/SGPT 11 U/L (7-56); AST/SGOT 12 U/L (17-59); BLOOD UREA NITROGEN 40 mg/dL (7-21); CALCIUM 8.7 mg/dL (8.4-10.5); GFR NON-AFRICAN AMERICAN > 60
[2018-01-23] MEDS: Insulin Reg-LOW-Coverage SC SCH ×4 (08:44→22:00)
[2018-01-23] MEDS: Metoprolol Succinate 100 mg XL Tab PO SCH (09:05)
[2018-01-23] MEDS ORDERED: metOLazone 2.5 MG TAB PO SCH (10:00)
[2018-01-23] MEDS: Ammonium Lactate 12% Lotion (225 g) EXT SCH ×2 (10:34→18:23)
[2018-01-23] MEDS: MethylPREDNISolone 40 mg Vial IVP SCH (10:35)
--- NOTE | 2018-01-23 11:46 | CP.PCM.PN ---
Addendum entered and electronically signed by Roman Basurto DO 01/23/18 12:05: Patient will be NPO after midnight. Nasal cannula was discontinued. Monitor. Pumping Station Engineer consulted. Original Note: <Roman Basurto - Last Filed: 01/23/18 12:03> Subjective - Date & Time of Evaluation Date of Evaluation: 01/23/18 Time of Evaluation: 07:00 - Subjective Subjective: Roman Basurto, PGY1 Medicine Progress Note for Dr. Ca Patient was seen and examined at bedside this morning. Patient denies cp, sob, abdominal pain, n/v/d, numbness and tingling of the extremities. Results of the patient's abdominal US was discussed. Vital signs are stable. No overnight changes. A full 12 point ROS was conducted and unremarkable except as stated above. Objective - Vital Signs/Intake and Output Vital Signs (last 24 hours): Temp Pulse Resp BP Pulse Ox 98.4 F 63 18 130/80 98 01/23/18 05:42 01/23/18 05:42 01/23/18 05:42 01/23/18 10:33 01/23/18 05:42 Intake and Output: 01/23/18 01/23/18 06:59 18:59 Intake Total 360 Output Total 1300 Balance -940 - Medications Medications: Current Medications Albuterol/Ipratropium (Duoneb 3 Mg/0.5 Mg (3 Ml) Ud) 3 ml IH Q2H PRN PRN Reason: Shortness of Breath Albuterol/Ipratropium (Duoneb 3 Mg/0.5 Mg (3 Ml) Ud) 3 ml IH [id number] [facility] Last Admin: 01/23/18 08:02 Dose: 3 ml Allopurinol (Zyloprim) 300 mg PO DAILY [facility] Last Admin: 01/23/18 10:34 Dose: 300 mg Diltiazem HCl (Cardizem) 60 mg PO TID [facility] Last Admin: 01/23/18 10:34 Dose: 60 mg Famotidine (Pepcid) 40 mg PO HS [facility] Last Admin: 01/22/18 21:42 Dose: 40 mg Furosemide (Lasix) 40 mg IVP Q12 [facility] Last Admin: 01/23/18 10:33 Dose: 40 mg Glimepiride (Amaryl) 2 mg PO DAILY [facility] Last Admin: 01/23/18 10:34 Dose: 2 mg Insulin Human Regular (Humulin R Low) 0 units SC ACHS [facility] PRN Reason: Protocol Last Admin: 01/23/18 08:44 Dose: Not Given Lactic Acid (Lac-Hydrin 12% Lotion (225 G)) 0 gm EXT BID [facility] Last Admin: 01/23/18 10:34 Dose: 1 applic Methylprednisolone (Solu-Medrol) 20 mg IVP Q12 [facility] Last Admin: 01/23/18 10:35 Dose: 20 mg Metoprolol Succinate (Toprol Xl) 100 mg PO BRK [facility] Last Admin: 01/23/18 09:05 Dose: 100 mg Warfarin Sodium (Coumadin) 8 mg PO 1800 [facility] PRN Reason: Protocol - Labs Labs: 01/23/18 07:00 01/23/18 07:00 PT 28.5 SECONDS (9.4-12.5) H 01/23/18 07:00 INR 2.43 01/23/18 07:00 APTT 45.1 Seconds (25.1-36.5) H 01/21/18 00:45 - Constitutional Appears: In Acute Distress - Head Exam Head Exam: ATRAUMATIC, NORMAL INSPECTION, NORMOCEPHALIC - Eye Exam Eye Exam: EOMI, Normal appearance, PERRL Pupil Exam: NORMAL ACCOMODATION, PERRL - ENT Exam ENT Exam: Mucous Membranes Moist, Normal Exam - Neck Exam Neck Exam: Full ROM, Normal Inspection. absent: Lymphadenopathy - Respiratory Exam Respiratory Exam: Clear to Ausculation Bilateral, NORMAL BREATHING PATTERN. absent: Rales, Rhonchi, Wheezes, Respiratory Distress - Cardiovascular Exam Cardiovascular Exam: REGULAR RHYTHM, +S1, +S2. absent: Murmur - GI/Abdominal Exam GI & Abdominal Exam: Soft, Normal Bowel Sounds, Organomegaly. absent: Tenderness Additional comments: Obese abdomen. - Extremities Exam Extremities Exam: Full ROM, Normal Capillary Refill. absent: Joint Swelling, Pedal Edema Additional comments: Patient has mild, bilateral leg swelling. Myoctic toe nails. - Back Exam Back Exam: NORMAL INSPECTION - Neurological Exam Neurological Exam: Alert, Awake, CN II-XII Intact, Normal Gait, Oriented x3 Neuro motor strength exam: Left Upper Extremity: 5, Right Upper Extremity: 5, Left Lower Extremity: 5, Right Lower Extremity: 5 - Psychiatric Exam Psychiatric exam: Normal Affect, Normal Mood - Skin Skin Exam: Dry, Intact, Normal Color, Warm Assessment and Plan - Assessment and Plan (Free Text) Assessment: Patient is a 57 year old male with PMH of CHF (EF in 2014 64%), paroxysmal afib on warfarin, DM, and HTN presenting to the ED on 01/21 for management of x1 week history of SOB. Patient is admitted for questionable cardiomyopathy versus CHF- pEF. Cardiology was consulted. Patient is being monitored on telemetry. Planning for nuclear stress test on Wednesday. Plan: SOB 2/2 Possible Cardiomyopathy vs CHF-pEF - Plan for nuclear stress test on Wednesday to evaluate shortness of breath and decreased functional tolerance (plan was d/w patient's mother yesterday) - c/w lasix 40 mg IVP q12, duonebs, steroids 40 mg IVP q12 - BNP was in the 900s on admission - Echo (01/21): EF 61%. No gross valvular abnormalities noted. - CXR (01/20): cardiomegaly. Moderate interstitial prominence may reflect infection or edema. Probable small right pleural effusion. - Previous cardiac cath in [facility] (2012): normal coronaries. Previous MUGA scan showed normal LV function. - Cardio consulted. Recs appreciated. - trops negative x2 - c/w BiPAP Hyperkalemia - improved - K is now 5.2 (latest) - K was 5.6 on 01/22; repeat was 4.9 - Given calcium gluconate, albuterol q2, insulin with D50, kayexalate - monitor - EKG stat (01/22): NSR. No peaked T waves or ST changes. Distended Abdomen - Abdominal US (01/22): Hepatosplenomegaly. Fatty liver. Non-specific mild thickening of gallbladder wall without cholelithiasis. - LFTs are normal - No GI complaints at this time Hx of paroxysmal afib on coumadin - INR is 2.43 (latest) - currently rate controlled - c/w metoprolol and cardizem - c/w tele monitoring Mycotic Toenails - Podiatry consulted, recs appreciated. - Aluminum lactate cream applied - History of DM DM II - ISS - Accuchecks HTN - c/w metoprolol GI ppx: Pepcid DVT ppx: SCD Diet: HHD (carb consistent) Dispo: Continue to monitor patient on telemetry. Plan for nuclear stress test on Wednesday. Case was discussed and reviewed with Attending Physician, Dr. Ca. <Corwin Ca - Last Filed: 01/23/18 12:45> Objective - Vital Signs/Intake and Output Vital Signs (last 24 hours): Temp Pulse Resp BP Pulse Ox 98.4 F 56 L 17 125/81 98 01/23/18 12:00 01/23/18 12:00 01/23/18 12:00 01/23/18 12:00 01/23/18 05:42 Intake and Output: 01/23/18 01/23/18 06:59 18:59 Intake Total 360 Output Total 1300 Balance -940 - Medications Medications: Current Medications Albuterol/Ipratropium (Duoneb 3 Mg/0.5 Mg (3 Ml) Ud) 3 ml IH Q2H PRN PRN Reason: Shortness of Breath Albuterol/Ipratropium (Duoneb 3 Mg/0.5 Mg (3 Ml) Ud) 3 ml IH [id number] [facility] Last Admin: 01/23/18 08:02 Dose: 3 ml Allopurinol (Zyloprim) 300 mg PO DAILY [facility] Last Admin: 01/23/18 10:34 Dose: 300 mg Diltiazem HCl (Cardizem) 60 mg PO TID [facility] Last Admin: 01/23/18 10:34 Dose: 60 mg Famotidine (Pepcid) 40 mg PO HS [facility] Last Admin: 01/22/18 21:42 Dose: 40 mg Furosemide (Lasix) 40 mg IVP Q12 [facility] Last Admin: 01/23/18 10:33 Dose: 40 mg Glimepiride (Amaryl) 2 mg PO DAILY [facility] Last Admin: 01/23/18 10:34 Dose: 2 mg Insulin Human Regular (Humulin R Low) 0 units SC ACHS [facility] PRN Reason: Protocol Last Admin: 01/23/18 12:21 Dose: Not Given Lactic Acid (Lac-Hydrin 12% Lotion (225 G)) 0 gm EXT BID [facility] Last Admin: 01/23/18 10:34 Dose: 1 applic Metoprolol Succinate (Toprol Xl) 100 mg PO BRK [facility] Last Admin: 01/23/18 09:05 Dose: 100 mg Prednisone (Prednisone Tab) 5 mg PO DAILY [facility] Warfarin Sodium (Coumadin) 5 mg PO 1800 [facility] PRN Reason: Protocol - Labs Labs: 01/23/18 07:00 01/23/18 07:00 PT 28.5 SECONDS (9.4-12.5) H 01/23/18 07:00 INR 2.43 01/23/18 07:00 APTT 45.1 Seconds (25.1-36.5) H 01/21/18 00:45 Attending/Attestation - Attestation I have personally seen and examined this patient.: Yes I have fully participated in the care of the patient.: Yes I have reviewed all pertinent clinical information, including history, physical exam and plan: Yes Notes (Text): 01/23/18 12:43 Attending note; Patient seen and examined with resident. patient is sitting in bed. Not in any acute distress. Denies any abdominal pain, nausea, vomiting. NPO past midnight for stress test. Patient is a 57 year old male with PMH of CHF (EF in 2014 64%), possible diastolic dysfunction, paroxysmal afib on warfarin, DM, and HTN is admitted for shortness of breath. Patient with poor compliance with follow-up. Shortness of breath /leg swelling Elevated BNP; acute on chronic diastolic dysfunction. cardiac enzymes 3 negative. EKG showed no acute ST-T changes. Normal sinus rhythm. Cardiology evaluation requested. Nuclear stress test planned for Wednesday. Started on IV Lasix. Echocardiogram showed ejection fraction of 61%. History of A. fib; currently in normal sinus rhythm.currently on Coumadin. INR is therapeutic. Obesity; diet, exercise, weight reduction encouraged. Abdominal obesity; patient with a history of alcohol abuse in the past. Abdominal ultrasound showed hepatomegaly and splenomegaly. Fatty infiltration of the liver. Secondary to obesity. needs close outpatient follow-up. History of smoking; currently stopped smoking few years ago. continue DuoNeb and taper steroid. Dietitian evaluation requested. The diagnosis, follow-up plan discussed with patient and patient's mother in detail. Upon discharge the patient will follow up with PMD Dr. Bhatia. Medication compliance and follow-up insisted in detail.
[2018-01-23] MEDS ORDERED: Sod Polystyrene Sulf 15 gm/60 ml Susp PO ONE (12:18)
[2018-01-24] MEDS: Albuterol-Ipratrop 3 mg / 0.5 (3 ml) UD IH SCH ×4 (01:26→20:22)
[2018-01-24 07:15] LABS: HEMOGLOBIN 12.9 g/dL (14.0-18.0); MEAN CELL VOLUME 75.8 fl (80.0-105.0); MEAN CORPUSCULAR HEMOGLOBIN 19.9 pg (25.0-35.0); MEAN CORPUSCULAR HGB CONC 26.3 g/dl (31.0-37.0); PLATELET COUNT 145 10^3/uL (120.0-450.0); RBC 6.48 10^6/uL (3.5-6.1); RED CELL DISTRIBUTION WIDTH 19.5 % (11.5-14.5)
[2018-01-24 07:21] LABS: INR 2.29; PROTHROMBIN TIME 26.8 SECONDS (9.4-12.5)
[2018-01-24 07:53] LABS: ALBUMIN 3.3 g/dL (3.0-4.8); ALT/SGPT 18 U/L (7-56); AST/SGOT 11 U/L (17-59); BLOOD UREA NITROGEN 45 mg/dL (7-21); CALCIUM 8.3 mg/dL (8.4-10.5); GFR NON-AFRICAN AMERICAN > 60
[2018-01-24] MEDS: Insulin Reg-LOW-Coverage SC SCH ×4 (08:00→21:52)
--- NOTE | 2018-01-24 08:01 | CP.PCM.PN ---
Subjective - Date & Time of Evaluation Date of Evaluation: 01/24/18 Time of Evaluation: 07:00 - Subjective Subjective: Stable on 2R. No CP or SOB. V/S noted. RSR/S. Jamari PE: Lungs: clear Cor.: S1S2 Abd.: ob fuad Neuro.: alert Ext.: + edema I/O= 1320/2725 Labs noted: INR 2.29 Echo noted: Limited study. LV fx. looks OK Stool for OB: neg X 1 Objective - Vital Signs/Intake and Output Vital Signs (last 24 hours): Temp Pulse Resp BP Pulse Ox 97.6 F 57 L 19 121/83 99 01/24/18 05:31 01/24/18 05:31 01/24/18 05:31 01/24/18 05:31 01/24/18 05:31 Intake and Output: 01/24/18 01/24/18 06:59 18:59 Intake Total 1320 Output Total 2725 Balance -1405 - Medications Medications: Current Medications Albuterol/Ipratropium (Duoneb 3 Mg/0.5 Mg (3 Ml) Ud) 3 ml IH Q2H PRN PRN Reason: Shortness of Breath Albuterol/Ipratropium (Duoneb 3 Mg/0.5 Mg (3 Ml) Ud) 3 ml IH [id number] [facility] Last Admin: 01/24/18 01:26 Dose: 3 ml Allopurinol (Zyloprim) 300 mg PO DAILY [facility] Last Admin: 01/23/18 10:34 Dose: 300 mg Diltiazem HCl (Cardizem) 60 mg PO TID [facility] Last Admin: 01/23/18 17:20 Dose: Not Given Famotidine (Pepcid) 40 mg PO HS [facility] Last Admin: 01/23/18 21:26 Dose: 40 mg Furosemide (Lasix) 40 mg IVP Q12 [facility] Last Admin: 01/23/18 21:26 Dose: 40 mg Glimepiride (Amaryl) 2 mg PO DAILY [facility] Last Admin: 01/23/18 10:34 Dose: 2 mg Insulin Human Regular (Humulin R Low) 0 units SC ACHS [facility] PRN Reason: Protocol Last Admin: 01/23/18 22:00 Dose: Not Given Lactic Acid (Lac-Hydrin 12% Lotion (225 G)) 0 gm EXT BID [facility] Last Admin: 01/23/18 18:23 Dose: 1 applic Metoprolol Succinate (Toprol Xl) 100 mg PO BRK [facility] Last Admin: 01/23/18 09:05 Dose: 100 mg Prednisone (Prednisone Tab) 5 mg PO DAILY [facility] Last Admin: 01/23/18 13:51 Dose: 5 mg Warfarin Sodium (Coumadin) 5 mg PO 1800 [facility] PRN Reason: Protocol Last Admin: 01/23/18 17:20 Dose: 5 mg - Labs Labs: 01/24/18 06:30 01/23/18 07:00 PT 26.8 SECONDS (9.4-12.5) H 01/24/18 06:30 INR 2.29 01/24/18 06:30 APTT 45.1 Seconds (25.1-36.5) H 01/21/18 00:45 Assessment and Plan - Assessment and Plan (Free Text) Assessment: CURIEL, Edema, Abd. Distension H/O CCM with nl cors at cath but recent N-I studies show nl. LV fx. PAF Obesity Diabetes HBP Former Smoker Formaer ETOH Gout Fatty Liver' Plan: Nuclear stress test today. R/O CAD and check EF. OOB, ambulation as amira. GI evaluation for fatty Liver Diet/Wt. Loss.
--- NOTE | 2018-01-24 08:25 | PN ---
DATE: 01/23/2018 SUBJECTIVE: The patient is seen lying in bed on telemetry. He is currently comfortable. He denies any dyspnea at rest. CURRENT MEDICATIONS: Amaryl, diltiazem 60 mg t.i.d., warfarin, DuoNeb inhaler, Lasix 40 mg every 12 hours, Pepcid, prednisone 5 m daily, metoprolol 100 mg daily and Zyloprim. OBJECTIVE: GENERAL: He is a morbidly obese, middle-aged man. VITAL SIGNS: The blood pressure is 124/80 with a pulse of 60, sinus; respirations are 14; he is afebrile. HEENT: A thick neck noted. CHEST: Few scattered rhonchi. HEART: The distant sounds noted. No pathologic murmur, rub or gallops noted. ABDOMEN: Soft, obese. Normoactive bowel sounds. EXTREMITIES: 1+ leg edema. DIAGNOSTIC DATA: Potassium 5.2, BUN and creatinine are 40 and 1.2. White count is 13.3, hemoglobin and hematocrit 13.2 and 49.7 with platelet count of 141,000. Abdominal ultrasound revealed hepatosplenomegaly with evidence of fatty liver, nonspecific gallbladder thickening. No ascites seen. IMPRESSION: 1. Exertional dyspnea, slowly improving, likely multifactorial given his morbid obesity and volume overloaded state. 2. History of congestive cardiomyopathy with recent normal left ventricular systolic function noted on noninvasive testing. 3. History of tobacco abuse. 4. Morbid obesity. RECOMMENDATIONS: His current medications should continue for now. IV diuretics will continue as well. A stress test is planned for the morning. The need for aggressive weight loss measures, medical compliance and sodium restriction were discussed with him as well. We will be happy to follow along and make further recommendations as appropriate. Zac Menon MD MTDD
[2018-01-24] MEDS: Ammonium Lactate 12% Lotion (225 g) EXT SCH ×2 (12:36→18:34)
[2018-01-24] MEDS: Metoprolol Succinate 100 mg XL Tab PO SCH (12:37)
--- NOTE | 2018-01-24 14:42 | CON ---
DATE: 01/24/2018 GASTROENTEROLOGY CONSULTATION REQUESTING PHYSICIAN: Corwin Ca MD. REASON FOR CONSULTATION: I have been asked to see this 57-year-old morbidly obese -[place] male for fatty liver. The patient was admitted to the hospital with dyspnea on exertion for 1 week. He is admitted for congestive heart failure. The patient has a questionable history of cardiomyopathy. He also has a history of paroxysmal atrial fibrillation, hypertension, diabetes mellitus. He denies any abdominal pain, nausea, or vomiting. The patient does have a history of alcohol use in the past but states that he has not had a drink in several months. He also quit cigarette smoking several years ago. PAST MEDICAL HISTORY: Again, notable for congestive heart failure, possible cardiomyopathy, atrial fibrillation. SOCIAL HISTORY: He quit cigarette smoking and alcohol several years ago. He is employed as a delivery truck driver. FAMILY HISTORY: Noncontributory. REVIEW OF SYSTEMS: A 14-point review of systems is notable for increasing shortness of breath. PHYSICAL EXAMINATION: GENERAL: Morbidly obese male sitting in bed, in no acute distress. VITAL SIGNS: Reveal temperature of 97.6, blood pressure 121/83, heart rate of 54. HEENT: Reveal sclerae to be white. Conjunctivae pink. NECK: Supple. CHEST: Lungs are clear. HEART: Reveals regular rate and rhythm. ABDOMEN: Obese, soft, nontender. His BMI is 51.5. EXTREMITIES: Show 1+ pedal edema. LABORATORY DATA: Reveals white blood cell count 11, hemoglobin 12.9, platelet count of 145,000. Chemistries reveal carbon dioxide 35, BUN 45, creatinine 1. AST, ALT, alk phos, total bilirubin are all normal. Ultrasound of the abdomen reveals diffuse increased echogenicity of the liver with hepatomegaly, absent gallstones, mild nonspecific thickening of the gallbladder wall, normal CBD, diameter of 6 mm. IMPRESSION: This is a 57-year-old male, morbidly obese with a body mass index of 51.5 with steatosis of the liver secondary to his morbid obesity. RECOMMENDATIONS: 1. Weight loss. 2. Consider evaluation for bariatric surgery if his cardiac risk is acceptable. No further GI workup needed at this time. Blaine Ramirez MD
--- NOTE | 2018-01-24 16:11 | CP.PCM.PN ---
<Silas Garber - Last Filed: 01/24/18 16:08> Subjective - Date & Time of Evaluation Date of Evaluation: 01/24/18 Time of Evaluation: 07:49 - Subjective Subjective: Silas Garber DO PGY-1, Internal Medicine Resident. Hospitalist Progress Note Patient seen and examined at bedside. Patient is resting in bed, awake and oriented. No acute events overnight. He reported that SOB is getting better. Patient denied chest pain, palpitation, fever, chills or change in bowel movement, N/V Objective - Vital Signs/Intake and Output Vital Signs (last 24 hours): Temp Pulse Resp BP Pulse Ox 98.2 F 68 20 108/50 L 99 01/24/18 12:00 01/24/18 15:36 01/24/18 12:00 01/24/18 15:36 01/24/18 05:31 Intake and Output: 01/24/18 01/24/18 06:59 18:59 Intake Total 1320 Output Total 2725 Balance -1405 - Medications Medications: Current Medications Albuterol/Ipratropium (Duoneb 3 Mg/0.5 Mg (3 Ml) Ud) 3 ml IH Q2H PRN PRN Reason: Shortness of Breath Albuterol/Ipratropium (Duoneb 3 Mg/0.5 Mg (3 Ml) Ud) 3 ml IH [id number] [facility] Last Admin: 01/24/18 13:48 Dose: 3 ml Allopurinol (Zyloprim) 300 mg PO DAILY [facility] Last Admin: 01/24/18 12:37 Dose: 300 mg Diltiazem HCl (Cardizem) 60 mg PO TID [facility] Last Admin: 01/24/18 15:36 Dose: 60 mg Famotidine (Pepcid) 40 mg PO HS [facility] Last Admin: 01/23/18 21:26 Dose: 40 mg Furosemide (Lasix) 40 mg IVP Q12 [facility] Last Admin: 01/24/18 12:36 Dose: 40 mg Glimepiride (Amaryl) 2 mg PO DAILY [facility] Last Admin: 01/24/18 12:37 Dose: 2 mg Insulin Human Regular (Humulin R Low) 0 units SC ACHS [facility] PRN Reason: Protocol Last Admin: 01/24/18 12:24 Dose: Not Given Lactic Acid (Lac-Hydrin 12% Lotion (225 G)) 0 gm EXT BID [facility] Last Admin: 01/24/18 12:36 Dose: 1 applic Metoprolol Succinate (Toprol Xl) 100 mg PO BRK [facility] Last Admin: 01/24/18 12:37 Dose: 100 mg Prednisone (Prednisone Tab) 5 mg PO DAILY [facility] Last Admin: 01/24/18 12:37 Dose: 5 mg Warfarin Sodium (Coumadin) 5 mg PO 1800 [facility] PRN Reason: Protocol Last Admin: 01/23/18 17:20 Dose: 5 mg - Labs Labs: 01/24/18 06:30 01/24/18 06:30 PT 26.8 SECONDS (9.4-12.5) H 01/24/18 06:30 INR 2.29 01/24/18 06:30 APTT 45.1 Seconds (25.1-36.5) H 01/21/18 00:45 - Additional Findings Additional findings: - Constitutional Appears: In Acute Distress - Head Exam Head Exam: ATRAUMATIC, NORMAL INSPECTION, NORMOCEPHALIC - Eye Exam Eye Exam: EOMI, Normal appearance, PERRL Pupil Exam: NORMAL ACCOMODATION, PERRL - ENT Exam ENT Exam: Mucous Membranes Moist, Normal Exam - Neck Exam Neck Exam: Full ROM, Normal Inspection. absent: Lymphadenopathy - Respiratory Exam Respiratory Exam: Clear to Ausculation Bilateral, NORMAL BREATHING PATTERN. absent: Rales, Rhonchi, Wheezes, Respiratory Distress - Cardiovascular Exam Cardiovascular Exam: REGULAR RHYTHM, +S1, +S2. absent: Murmur - GI/Abdominal Exam GI & Abdominal Exam: Soft, Normal Bowel Sounds, Organomegaly. absent: Tenderness Additional comments: Obese abdomen. - Extremities Exam Extremities Exam: Full ROM, Normal Capillary Refill. absent: Joint Swelling, Pedal Edema Additional comments: Patient has mild, bilateral leg swelling. Myoctic toe nails. - Back Exam Back Exam: NORMAL INSPECTION - Neurological Exam Neurological Exam: Alert, Awake, CN II-XII Intact, Normal Gait, Oriented x3 Neuro motor strength exam: Left Upper Extremity: 5, Right Upper Extremity: 5, Left Lower Extremity: 5, Right Lower Extremity: 5 - Psychiatric Exam Psychiatric exam: Normal Affect, Normal Mood - Skin Skin Exam: Dry, Intact, Normal Color, Warm Assessment and Plan - Assessment and Plan (Free Text) Assessment: Patient is a 57 year old male with PMH of CHF (EF in 2015 64%), paroxysmal afib on warfarin, DM, and HTN presenting to the ED with SOB x1 week. Patient admitted for cardiomyopathy versus CHF-pEF. Patient is being monitored on telemetry. N uclear stress test done today Plan: SOB 2/2 Possible Cardiomyopathy vs CHF-pEF - c/w lasix 40 mg IVP q12, duonebs, steroids 40 mg IVP q12 - Echo: EF 61%. No gross valvular abnormalities noted - Nuclear stress test done today. read pening - I/O: -1405 in last 24 hours - BNP 943 on admission - D-Dimer <200 - CXR: cardiomegaly. Moderate interstitial prominence may reflect infection or edema. Probable small right pleural effusion. - Previous cardiac [place] in [facility] [place]): normal coronaries. Previous MUGA scan showed normal LV function. - Cardio consulted Dr Lee. will f/u stress test - c/w BiPAP Distended Abdomen - Abdominal US: Hepatosplenomegaly. Fatty liver - LFTs: normal - GI consulted and recommended weight loss and to consider bariatric surgery if cardiac risk acceptable Hx of paroxysmal afib on coumadin - INR trending down. 2.29 today - currently rate controlled - c/w metoprolol and cardizem - c/w tele monitoring Mycotic Toenails - Podiatry consulted: patient tolerated the nail debridement well DM II - A1C 6.2 - ISS - Accuchecks HTN - c/w metoprolol Hyperkalemia - improved - K was 5.6 on admission. today is 4 GI ppx: Pepcid DVT ppx: SCD Diet: HHD OOB, ambulation as tolerated Case was discussed and reviewed with Attending Physician, Dr. Torres. <Randa Torres R - Last Filed: 01/25/18 16:58> Objective - Vital Signs/Intake and Output Vital Signs (last 24 hours): Temp Pulse Resp BP Pulse Ox 98.6 F 66 20 121/77 98 01/25/18 12:00 01/25/18 15:43 01/25/18 12:00 01/25/18 15:43 01/25/18 06:00 - Medications Medications: Current Medications Albuterol/Ipratropium (Duoneb 3 Mg/0.5 Mg (3 Ml) Ud) 3 ml IH Q2H PRN PRN Reason: Shortness of Breath Albuterol/Ipratropium (Duoneb 3 Mg/0.5 Mg (3 Ml) Ud) 3 ml IH [id number] [facility] Last Admin: 01/25/18 13:09 Dose: 3 ml Allopurinol (Zyloprim) 300 mg PO DAILY [facility] Last Admin: 01/25/18 11:48 Dose: 300 mg Diltiazem HCl (Cardizem) 60 mg PO TID [facility] Last Admin: 01/25/18 15:43 Dose: 60 mg Famotidine (Pepcid) 40 mg PO HS [facility] Last Admin: 01/24/18 22:08 Dose: 40 mg Furosemide (Lasix) 40 mg IVP Q12 [facility] Last Admin: 01/25/18 11:46 Dose: 40 mg Glimepiride (Amaryl) 2 mg PO DAILY [facility] Last Admin: 01/25/18 11:46 Dose: 2 mg Insulin Human Regular (Humulin R Low) 0 units SC ACHS [facility]; Protocol Last Admin: 01/25/18 11:46 Dose: Not Given Lactic Acid (Lac-Hydrin 12% Lotion (225 G)) 0 gm EXT BID [facility] Last Admin: 01/24/18 18:34 Dose: Not Given Metoprolol Succinate (Toprol Xl) 100 mg PO BRK [facility] Last Admin: 01/25/18 11:46 Dose: 100 mg Prednisone (Prednisone Tab) 5 mg PO DAILY [facility] Last Admin: 01/25/18 11:49 Dose: 5 mg Warfarin Sodium (Coumadin) 5 mg PO 1800 [facility]; Protocol Last Admin: 01/24/18 18:33 Dose: 5 mg - Labs Labs: 01/25/18 06:20 01/25/18 06:20 PT 25.1 SECONDS (9.4-12.5) H 01/25/18 06:20 INR 2.15 01/25/18 06:20 APTT 45.1 Seconds (25.1-36.5) H 01/21/18 00:45 Attending/Attestation - Attestation I have personally seen and examined this patient.: Yes I have fully participated in the care of the patient.: Yes I have reviewed all pertinent clinical information, including history, physical exam and plan: Yes Notes (Text): Patient seen and examined by me at 10:55AM with resident 01/24/18. Case including HPI, physical exam, and assessment and plan discussed with resident. Agree with above with following additions/corrections. Patient is a 57-year-old male with past medical history significant for CHF, paroxysmal atrial fibrillation on Coumadin, type 2 diabetes, and hypertension that presented to the emergency room with shortness of breath. Patient states that he is feelin ok. States that he went for the first part of his stress test today. Patient states he felt short of breath during the stress test. He is going for the second part of his stress test tomorrow. He states that he only gets short of breath with exertion. He has been able to walk to the bathroom and back without feeling short of breath. Patient denies any chest pain or palpitations. No dizziness or lightheadedness. No nausea or vomiting. No abdominal pain. No headaches. No dysuria. No diarrhea or constipation. Physical exam: Gen: Awake and alert sitting up in bed in no acute distress HEENT: Normocephalic, atraumatic. Extraocular muscles intact, pupils equal reactive. No scleral icterus. Oropharynx is pink and moist. Neck is supple. Cardiovascular: Normal rhythm. Normal S1, S2. No murmurs, rubs, or gallops appreciated Pulmonary: Normal respiratory effort. No rhonchi, rales, or wheezing appreciated. Gastrointestinal: Soft, nondistended. Nontender. Morbidly obese abdomen. Positive bowel sounds all 4 quadrants, no guarding. Musculoskeletal: Moves all extremities. No calf tenderness. No edema appreciated. Central nervous system: AAO x 3. CN 2-12 grossly intact Dermatologic: Skin warm and dry Assessment and plan: Patient is a 57-year-old male with past medical history significant for CHF, paroxysmal atrial fibrillation on Coumadin, type 2 diabetes, and hypertension that presented to the emergency room with shortness of breath. 1. CHF exacerbation, likely diastolic dysfunction. 2d Echo per corn cutter operator shows technically limited study due to body habitus, chamber sizes appear within normal limits, left ventricular systolic function appears normal, no gross valvular abnormalities noted. Cardiology following, recommendations appreciated. Continue with IV Lasix. Status post first part of stress test today. Results pending. Follow-up second part of stress test tomorrow. 2. Dyspnea. Likely multifactorial secondary to COPD and CHF exacerbation. Improved. Continue Lasix. Continue with nebulizer treatments and prednisone. 3. Paroxysmal atrial fibrillation. Continue Cardizem. Continue Coumadin. INR is therapeutic. 4. Hepatosplenomegaly. Abdominal ultrasound per radiologist shows hepatosplenomegaly, fatty infiltration of the liver, nonspecific mild thickening of the gallbladder wall without cholelithiasis. Likely secondary to obese habitus. Patient counseled on diet and exercise. GI consulted, follow-up recommendations. 5. COPD exacerbation. Continue nebulizer treatments. Continue prednisone. Continue O2 via nasal cannula as needed. 6. Type 2 diabetes. Continue home Amaryl. Continue insulin sliding scale. Continue to monitor Accu-Cheks. 7. Hypertension. Continue Cardizem and metoprolol. 8. History of gout. Continue allopurinol. 9. GI/DVT prophylaxis. Pepcid/Coumadin Case was discussed in detail with the patient regarding current diagnosis and treatment plan. All questions answered.
[2018-01-24 17:31] LABS: HEPATITIS B SURFACE AG Negative (NEGATIVE)
[2018-01-24 17:37] LABS: HEPATITIS A IGM NEGATIVE (NEGATIVE); HEPATITIS B CORE AB NEGATIVE (NEGATIVE)
[2018-01-24 17:49] LABS: HEPATITIS C ANTIBODY NEGATIVE (NEGATIVE)
[2018-01-25] MEDS: Albuterol-Ipratrop 3 mg / 0.5 (3 ml) UD IH SCH ×4 (01:32→20:07)
[2018-01-25 07:30] LABS: HEMOGLOBIN 14.1 g/dL (14.0-18.0); MEAN CELL VOLUME 75.6 fl (80.0-105.0); MEAN CORPUSCULAR HEMOGLOBIN 20.1 pg (25.0-35.0); MEAN CORPUSCULAR HGB CONC 26.7 g/dl (31.0-37.0); PLATELET COUNT 123 10^3/uL (120.0-450.0); RED CELL DISTRIBUTION WIDTH 20.3 % (11.5-14.5); WHITE BLOOD COUNT 9.3 10^3/ul (4.5-11.0)
[2018-01-25 07:41] LABS: INR 2.15; PROTHROMBIN TIME 25.1 SECONDS (9.4-12.5)
[2018-01-25 08:06] LABS: ALB/GLOB RATIO 1.2 (1.1-1.8); ALBUMIN 3.7 g/dL (3.0-4.8); ALT/SGPT 20 U/L (7-56); AST/SGOT 21 U/L (17-59); BLOOD UREA NITROGEN 43 mg/dL (7-21); CALCIUM 8.5 mg/dL (8.4-10.5); GFR NON-AFRICAN AMERICAN > 60
[2018-01-25] MEDS: Insulin Reg-LOW-Coverage SC SCH ×4 (08:20→21:53)
[2018-01-25] MEDS: Ammonium Lactate 12% Lotion (225 g) EXT SCH ×2 (10:00→18:44)
[2018-01-25] MEDS: Metoprolol Succinate 100 mg XL Tab PO SCH (11:46)
--- NOTE | 2018-01-25 14:27 | CP.PCM.PN ---
<Silas Garber - Last Filed: 01/25/18 14:46> Subjective - Date & Time of Evaluation Date of Evaluation: 01/25/18 Time of Evaluation: 06:10 - Subjective Subjective: Silas Garber DO PGY-1, Internal Medicine Resident. Hospitalist Progress Note Patient seen and examined at bedside. Patient is resting in bed, awake and oriented. He is able to ambulate in the room. No acute events overnight. He reported that SOB is getting better. Patient denied chest pain, palpitation, fever, chills or change in bowel movement, N/V Objective - Vital Signs/Intake and Output Vital Signs (last 24 hours): Temp Pulse Resp BP Pulse Ox 98.6 F 56 L 20 138/83 98 01/25/18 12:00 01/25/18 12:00 01/25/18 12:00 01/25/18 12:00 01/25/18 06:00 - Medications Medications: Current Medications Albuterol/Ipratropium (Duoneb 3 Mg/0.5 Mg (3 Ml) Ud) 3 ml IH Q2H PRN PRN Reason: Shortness of Breath Albuterol/Ipratropium (Duoneb 3 Mg/0.5 Mg (3 Ml) Ud) 3 ml IH [id number] [facility] Last Admin: 01/25/18 13:09 Dose: 3 ml Allopurinol (Zyloprim) 300 mg PO DAILY [facility] Last Admin: 01/25/18 11:48 Dose: 300 mg Diltiazem HCl (Cardizem) 60 mg PO TID [facility] Last Admin: 01/25/18 11:49 Dose: 60 mg Famotidine (Pepcid) 40 mg PO HS [facility] Last Admin: 01/24/18 22:08 Dose: 40 mg Furosemide (Lasix) 40 mg IVP Q12 [facility] Last Admin: 01/25/18 11:46 Dose: 40 mg Glimepiride (Amaryl) 2 mg PO DAILY [facility] Last Admin: 01/25/18 11:46 Dose: 2 mg Insulin Human Regular (Humulin R Low) 0 units SC [facility]; Protocol Last Admin: 01/25/18 11:46 Dose: Not Given Lactic Acid (Lac-Hydrin 12% Lotion (225 G)) 0 gm EXT BID [facility] Last Admin: 01/24/18 18:34 Dose: Not Given Metoprolol Succinate (Toprol Xl) 100 mg PO BRK [facility] Last Admin: 01/25/18 11:46 Dose: 100 mg Prednisone (Prednisone Tab) 5 mg PO DAILY [facility] Last Admin: 01/25/18 11:49 Dose: 5 mg Warfarin Sodium (Coumadin) 5 mg PO 1800 [facility]; Protocol Last Admin: 01/24/18 18:33 Dose: 5 mg - Labs Labs: 01/25/18 06:20 01/25/18 06:20 PT 25.1 SECONDS (9.4-12.5) H 01/25/18 06:20 INR 2.15 01/25/18 06:20 APTT 45.1 Seconds (25.1-36.5) H 01/21/18 00:45 - Additional Findings Additional findings: - Constitutional Appears: In Acute Distress - Head Exam Head Exam: ATRAUMATIC, NORMAL INSPECTION, NORMOCEPHALIC - Eye Exam Eye Exam: EOMI, Normal appearance, PERRL Pupil Exam: NORMAL ACCOMODATION, PERRL - ENT Exam ENT Exam: Mucous Membranes Moist, Normal Exam - Neck Exam Neck Exam: Full ROM, Normal Inspection. absent: Lymphadenopathy - Respiratory Exam Respiratory Exam: Clear to Ausculation Bilateral, NORMAL BREATHING PATTERN. abs ent: Rales, Rhonchi, Wheezes, Respiratory Distress - Cardiovascular Exam Cardiovascular Exam: REGULAR RHYTHM, +S1, +S2. absent: Murmur - GI/Abdominal Exam GI & Abdominal Exam: Soft, Normal Bowel Sounds, Organomegaly. absent: Tenderness Additional comments: Obese abdomen. - Extremities Exam Extremities Exam: Full ROM, Normal Capillary Refill. absent: Joint Swelling, Pedal Edema Additional comments: Patient has mild, bilateral leg swelling. Myoctic toe nails. - Back Exam Back Exam: NORMAL INSPECTION - Neurological Exam Neurological Exam: Alert, Awake, CN II-XII Intact, Normal Gait, Oriented x3 Neuro motor strength exam: Left Upper Extremity: 5, Right Upper Extremity: 5, Left Lower Extremity: 5, Right Lower Extremity: 5 - Psychiatric Exam Psychiatric exam: Normal Affect, Normal Mood - Skin Skin Exam: Dry, Intact, Normal Color, Warm Assessment and Plan - Assessment and Plan (Free Text) Assessment: Patient is a 57 year old male with PMH of CHF (EF in 2015 64%), paroxysmal afib on warfarin, DM, and HTN presenting to the ED with SOB x1 week. Patient admitted for cardiomyopathy versus CHF-pEF. Patient is being monitored on telemetry. Nuclear stress test done, read pending Plan: SOB 2/2 Possible Cardiomyopathy vs CHF-pEF - c/w lasix 40 mg IVP q12, duonebs, steroids 40 mg IVP q12 - Echo: EF 61%. No gross valvular abnormalities noted - Nuclear stress test done. read pening - I/O: -1580 in last 24 hours - BNP 943 on admission - D-Dimer <200 - CXR: cardiomegaly. Moderate interstitial prominence may reflect infection or edema. Probable small right pleural effusion. - Previous cardiac cath in [facility] [place] (2012): normal coronaries. Previous MUGA scan showed normal LV function. - Cardio consulted Dr Lee. will f/u stress test - c/w BiPAP Distended Abdomen - Abdominal US: Hepatosplenomegaly. Fatty liver - LFTs: normal - GI consulted and recommended weight loss and to consider bariatric surgery if cardiac risk acceptable - Hepatitis B&C negative Hx of paroxysmal afib on coumadin - INR trending down. 2.15 today - currently rate controlled - c/w metoprolol and cardizem - c/w tele monitoring Mycotic Toenails - Podiatry consulted: patient tolerated the nail debridement well DM II - A1C 6.2 - ISS - Accuchecks HTN - c/w metoprolol Hyperkalemia - improved - K was 5.6 on admission. today is 4 GI ppx: Pepcid DVT ppx: SCD Diet: HHD OOB, ambulation as tolerated Case was discussed and reviewed with Attending Physician, Dr. Torres. <Randa Torres R - Last Filed: 01/26/18 15:45> Objective - Vital Signs/Intake and Output Vital Signs (last 24 hours): Temp Pulse Resp BP Pulse Ox 98.4 F 61 19 129/76 98 01/26/18 12:00 01/26/18 13:55 01/26/18 12:00 01/26/18 13:55 01/26/18 06:00 Intake and Output: 01/26/18 01/26/18 06:59 18:59 Intake Total 600 Output Total 1500 Balance -900 - Medications Medications: Current Medications Albuterol/Ipratropium (Duoneb 3 Mg/0.5 Mg (3 Ml) Ud) 3 ml IH Q2H PRN PRN Reason: Shortness of Breath Albuterol/Ipratropium (Duoneb 3 Mg/0.5 Mg (3 Ml) Ud) 3 ml IH [id number] [facility] Last Admin: 01/26/18 14:00 Dose: 3 ml Allopurinol (Zyloprim) 300 mg PO DAILY [facility] Last Admin: 01/26/18 09:14 Dose: 300 mg Diltiazem HCl (Cardizem) 60 mg PO TID [facility] Last Admin: 01/26/18 13:55 Dose: 60 mg Famotidine (Pepcid) 40 mg PO HS [facility] Last Admin: 01/25/18 21:27 Dose: 40 mg Furosemide (Lasix) 40 mg IVP Q12 [facility] Last Admin: 01/26/18 09:14 Dose: 40 mg Glimepiride (Amaryl) 2 mg PO DAILY [facility] Last Admin: 01/26/18 09:14 Dose: 2 mg Insulin Human Regular (Humulin R Low) 0 units SC ACHS [facility]; Protocol Last Admin: 01/26/18 11:25 Dose: Not Given Lactic Acid (Lac-Hydrin 12% Lotion (225 G)) 0 gm EXT BID [facility] Last Admin: 01/26/18 09:19 Dose: 1 applic Metoprolol Succinate (Toprol Xl) 100 mg PO BRK [facility] Last Admin: 01/26/18 09:13 Dose: 100 mg Prednisone (Prednisone Tab) 5 mg PO DAILY [facility] Last Admin: 01/26/18 09:14 Dose: 5 mg Warfarin Sodium (Coumadin) 5 mg PO 1800 [facility]; Protocol Last Admin: 01/25/18 18:44 Dose: 5 mg - Labs Labs: 01/26/18 09:30 01/26/18 09:30 PT 20.5 SECONDS (9.4-12.5) H 01/26/18 09:30 INR 1.76 01/26/18 09:30 APTT 35.1 Seconds (25.1-36.5) 01/26/18 09:30 Attending/Attestation - Attestation I have personally seen and examined this patient.: Yes I have fully participated in the care of the patient.: Yes I have reviewed all pertinent clinical information, including history, physical exam and plan: Yes Notes (Text): Patient seen and examined by me at 1:45PM with resident 01/25/18. Case including HPI, physical exam, and assessment and plan discussed with resident. Agree with above with following additions/corrections. Patient is a 57-year-old male with past medical history significant for CHF, paroxysmal atrial fibrillation on Coumadin, type 2 diabetes, and hypertension that presented to the emergency room with shortness of breath. Patient states that he is feeling ok. States second part of stress test went well. He denies any shortness of breath at rest. Still able to walk to restroom and back without shortness of breath. Patient states he has not abmulated any further and is unsure if he has any shortness of breath with ambulating for a longer period of time. He denies any chest pain or palpitations. No dizziness or lightheadedness. No nausea or vomiting. No abdominal pain. No headaches. No dysuria. No diarrhea or constipation. Physical exam: Gen: Awake and alert sitting up in bed in no acute distress HEENT: Normocephalic, atraumatic. Extraocular muscles intact, pupils equal reactive. No scleral icterus. Oropharynx is pink and moist. Neck is supple. Cardiovascular: Normal rhythm. Normal S1, S2. No murmurs, rubs, or gallops appreciated Pulmonary: Normal respiratory effort. No rhonchi, rales, or wheezing appreciated. Gastrointestinal: Soft, nondistended. Nontender. Morbidly obese abdomen. Positive bowel sounds all 4 quadrants, no guarding. Musculoskeletal: Moves all extremities. No calf tenderness. No edema appreciated. Central nervous system: AAO x 3. CN 2-12 grossly intact Dermatologic: Skin warm and dry Assessment and plan: Patient is a 57-year-old male with past medical history significant for CHF, paroxysmal atrial fibrillation on Coumadin, type 2 diabetes, and hypertension that presented to the emergency room with shortness of breath. 1. CHF exacerbation, likely diastolic dysfunction. 2d Echo per topline beading machine tender shows technically limited study due to body habitus, chamber sizes appear within normal limits, left ventricular systolic function appears normal, no gross va lvular abnormalities noted. Cardiology following, recommendations appreciated. Continue with IV Lasix. Status post stress test. Results pending. 2. Dyspnea. Likely multifactorial secondary to COPD and CHF exacerbation. Improved. Continue Lasix. Continue with nebulizer treatments and prednisone. 3. Paroxysmal atrial fibrillation. Continue Cardizem. Continue Coumadin. INR is therapeutic. 4. Hepatosplenomegaly. Abdominal ultrasound per radiologist shows hepatosplenomegaly, fatty infiltration of the liver, nonspecific mild thickening of the gallbladder wall without cholelithiasis. Likely secondary to obese habitus. Patient counseled on diet and exercise. GI consulted, follow-up recommendations. 5. COPD exacerbation. Continue nebulizer treatments. Continue prednisone. Continue O2 via nasal cannula as needed. 6. Type 2 diabetes. Continue home Amaryl. Continue insulin sliding scale. Continue to monitor Accu-Cheks. 7. Hypertension. Continue Cardizem and metoprolol. 8. History of gout. Continue allopurinol. 9. GI/DVT prophylaxis. Pepcid/Coumadin Case was discussed in detail with the patient regarding current diagnosis and treatment plan. All questions answered.
[2018-01-26] MEDS: Albuterol-Ipratrop 3 mg / 0.5 (3 ml) UD IH SCH ×4 (02:20→19:51)
[2018-01-26] MEDS: Insulin Reg-LOW-Coverage SC SCH ×4 (08:25→21:54)
[2018-01-26] MEDS: Metoprolol Succinate 100 mg XL Tab PO SCH (09:13)
[2018-01-26] MEDS: Ammonium Lactate 12% Lotion (225 g) EXT SCH ×2 (09:19→18:05)
[2018-01-26 09:47] LABS: EOS # 0.6 (0.0-0.7); EOS % 5.8 % (1.5-5.0); GRAN # 7.53 (1.4-6.5); HEMOGLOBIN 14.3 g/dL (14.0-18.0); LYMPH # 1.5 (1.2-3.4); LYMPH % 14.6 % (22.0-35.0); MEAN CELL VOLUME 76.2 fl (80.0-105.0); MEAN CORPUSCULAR HEMOGLOBIN 20.4 pg (25.0-35.0); MEAN CORPUSCULAR HGB CONC 26.8 g/dl (31.0-37.0); MONO # 0.4 (0.1-0.6); MONO % 3.6 % (1.0-6.0); PLATELET COUNT 105 10^3/uL (120.0-450.0); RBC 7.01 10^6/uL (3.5-6.1); RED CELL DISTRIBUTION WIDTH 19.7 % (11.5-14.5); WHITE BLOOD COUNT 9.9 10^3/ul (4.5-11.0)
[2018-01-26 09:55] LABS: INR 1.76; PARTIAL THROMBOPLASTIN TIME 35.1 Seconds (25.1-36.5); PROTHROMBIN TIME 20.5 SECONDS (9.4-12.5)
[2018-01-26 10:08] LABS: ALBUMIN 3.7 g/dL (3.0-4.8); ALT/SGPT 15 U/L (7-56); AST/SGOT 20 U/L (17-59); BLOOD UREA NITROGEN 31 mg/dL (7-21); CALCIUM 8.6 mg/dL (8.4-10.5); GFR NON-AFRICAN AMERICAN > 60
--- NOTE | 2018-01-26 10:11 | CARD ---
APPROVED REPORT Date of service: 01/24/2018 Protocol: REZA Test Type: Sestamibi Stress Test Attending Physician: Dr. Lowell Loya Referring Physician: Dr. Corwin Ca Test Indications: Dyspnea Height:5 ft 7 in Weight:328lbs Medications: duoneb, zyloprim, cardizem, pepcid, lasix, amaryl, insulin, toprol xl, prednisone, coumadin Medical History: 57 y/o obese diabetic male with recent CURIEL and edema with abdominal distension and h/o CCM. Target HR: 165 bpm Resting ECG: RSR Resting Heart Rate: 82 bpm Resting Blood Pressure: 142/86mmHg Submaximum (85%): 140 bpm POST EXERCISE Reason for Termination: Dyspnea and Fatigue. Target HR: No Max HR: 146 bpm 99% of Maximum Predicted HR: 165 bpm Exercise duration: 03:26 min:sec, 0 Stage Exercise capacity: 4.9METs Max Blood Pressure: 160/90mmHg Blood Pressure response to exercise: Normal Heart Rate response to exercise: Appropriate Chest Pain: No, None Angina index: 0 Arrhythmia: No, None ST Change: Yes, Nomne Deviation: 0 mm TEST SUMMARY [id number]/.[id number]. [id number]. MANUALSTAGE 300:[id number]. [id number]:50 Contrast agent administered at 3 Min. exercise. INTERPRETATION Stress EKG Conclusion: Symptom limited stress test which was negative for chest pain, ischemia and arrhythmia. Poor exercise capacity. Nuclear scans pending. Signed by Lowell Loya Electronically Approved: 01/24/2018 11:00:25 EXAM: Myocardial Perfusion STRESS/REST 2DAYS Stress Test Type: Exercise Treadmill Imaging Protocol Rest Spect myocardial perfusion imaging was performed in supine position 65 minutes following the injection of 30.2 mCi of Tc-99 Myoview. At peak stress, the patient was injected intravenously with 30.7mCi of Tc-99 tetrofosmin after an exercise time of 3 minutes and 26 seconds. Gated Stress Spect was performed 70 minutes after intravenous Tc-99 Myoview injection. The images were gated to evaluate regional wall motion and calculate ventricular ejection fraction.Images were reconstructed using backfilter projection method in short horizontal and verticle long axis. Spect slices were generated. LV Perfusion The quality of the study is good. The left ventricle is within normal limits in size. The right ventricle is unremarkable. The lung uptake is within normal limits. The distribution of tracer reveals normal uptake pattern throughout the LV myocardium on the stress study. The rest myocardial perfusion study shows no significant change. Wall Motion Wall motion study shows good contractility of the left ventricle. LVEF = 76%. Conclusion 1. Normal SPECT myocardial perfusion study. 2. Normal gated wall motion of the left ventricle.
--- NOTE | 2018-01-26 13:35 | CP.PCM.DIS ---
<JosSilas hardin - Last Filed: 01/26/18 15:16> Provider - Provider Date of Admission: 01/21/18 13:25 Attending physician: Randa Torres DO Primary care physician: Escobar Bhatia MD Consults: cardio podiatry GI Time Spent in preparation of Discharge (in minutes): 45 Hospital Course - Lab Results Lab Results: Most Recent Lab Values WBC 9.9 10^3/ul (4.5-11.0) 01/26/18 09:30 RBC 7.01 10^6/uL (3.5-6.1) H 01/26/18 09:30 Hgb 14.3 g/dL (14.0-18.0) 01/26/18 09:30 Hct 53.4 % (42.0-52.0) H 01/26/18 09:30 MCV 76.2 fl (80.0-105.0) L 01/26/18 09:30 MCH 20.4 pg (25.0-35.0) L 01/26/18 09:30 MCHC 26.8 g/dl (31.0-37.0) L 01/26/18 09:30 RDW 19.7 % (11.5-14.5) H 01/26/18 09:30 Plt Count 105 10^3/uL (120.0-450.0) L 01/26/18 09:30 Gran % 76.0 % (50.0-68.0) H 01/26/18 09:30 Lymph % (Auto) 14.6 % (22.0-35.0) L 01/26/18 09:30 [place] % (Auto) 3.6 % (1.0-6.0) 01/26/18 09:30 Eos % (Auto) 5.8 % (1.5-5.0) H 01/26/18 09:30 Baso % (Auto) 0.0 % (0.0-3.0) 01/26/18 09:30 Gran # 7.53 (1.4-6.5) H 01/26/18 09:30 Lymph # (Auto) 1.5 (1.2-3.4) 01/26/18 09:30 [place] # (Auto) 0.4 (0.1-0.6) 01/26/18 09:30 Eos # (Auto) 0.6 (0.0-0.7) 01/26/18 09:30 Baso # (Auto) 0.00 K/mm3 (0.0-2.0) 01/26/18 09:30 Neutrophils % (Manual) 92 % (50.0-70.0) H 01/21/18 08:20 Band Neutrophils % 1 % (0-2) 01/21/18 08:20 Lymphocytes % (Manual) 6 % (22.0-35.0) L 01/21/18 08:20 Monocytes % (Manual) 1 % (1.0-6.0) 01/21/18 08:20 Platelet Evaluation Normal (NORMAL) 01/21/18 08:20 Hypochromasia 2+ 01/21/18 08:20 PT 20.5 SECONDS (9.4-12.5) H 01/26/18 09:30 INR 1.76 01/26/18 09:30 APTT 35.1 Seconds (25.1-36.5) 01/26/18 09:30 D-Dimer, Quantitative < 200 ng/mlDDU (0-243) 01/20/18 19:00 pCO2 54 mm/Hg (35-45) H 01/21/18 06:36 pO2 46.0 mm/Hg (80-100) L 01/21/18 06:36 HCO3 31.2 mmol/L (21-28) H 01/21/18 06:36 ABG pH 7.37 (7.35-7.45) 01/21/18 06:36 ABG Total CO2 32.9 mmol.L (22-28) H 01/21/18 06:36 ABG O2 Saturation 79.8 % (95-98) L 01/21/18 06:36 ABG O2 Content 15.3 ML/dl (15-23) 01/21/18 06:36 ABG Base Excess 4.4 mmol/L (-2.0-3.0) H 01/21/18 06:36 ABG Hemoglobin 14.3 g/dL (11.7-17.4) 01/21/18 06:36 ABG Carboxyhemoglobin 3.7 % (0.5-1.5) H 01/21/18 06:36 POC ABG HHb (Measured) 19.2 % (0-5) H 01/21/18 06:36 ABG Methemoglobin 1.2 % (0.0-3.0) 01/21/18 06:36 ABG O2 Capacity 19.2 mL/dl (16-24) 01/21/18 06:36 VBG pH 7.28 (7.32-7.43) L 01/20/18 18:40 VBG pCO2 80.0 (40-60) H* 01/20/18 18:40 VBG HCO3 37.6 mmol/l (21-28) H 01/20/18 18:40 VBG Total CO2 40.1 mmol.L (22-28) H 01/20/18 18:40 VBG O2 Sat (Calc) 69.6 % (40-65) H 01/20/18 18:40 VBG Base Excess 7.7 mmol/L (0.0-2.0) H 01/20/18 18:40 VBG Potassium 5.1 mmol/L (3.6-5.2) 01/20/18 18:40 Hgb O2 Saturation 76.0 % (95.0-98.0) L 01/21/18 06:36 Sodium 141.0 mmol/L (132-148) 01/20/18 18:40 Chloride 103.0 mmol/L (98-107) 01/20/18 18:40 Glucose 95 mg/dl (75-110) 01/20/18 18:40 Lactate 1.7 mmol/L (0.7-2.1) 01/20/18 18:40 FiO2 21.0 % 01/21/18 06:36 Sodium 145 mmol/L (132-148) 01/26/18 09:30 Potassium 4.1 mmol/L (3.6-5.0) 01/26/18 09:30 Chloride 99 mmol/L (98-107) 01/26/18 09:30 Carbon Dioxide 39 mmol/L (21-33) H 01/26/18 09:30 Anion Gap 11 (10-20) 01/26/18 09:30 BUN 31 mg/dL (7-21) H 01/26/18 09:30 Creatinine 1.0 mg/dl (0.8-1.5) 01/26/18 09:30 Est GFR ( Amer) > 60 01/26/18 09:30 Est GFR (Non-Af Amer) > 60 01/26/18 09:30 POC Glucose (mg/dL) 103 mg/dL (65-110) 01/25/18 21:10 Random Glucose 114 mg/dL (70-110) H 01/26/18 09:30 Hemoglobin A1c 6.2 % (4.2-6.5) 01/21/18 08:20 Calcium 8.6 mg/dL (8.4-10.5) 01/26/18 09:30 Phosphorus 3.8 mg/dL (2.5-4.5) 01/21/18 08:20 Magnesium 2.5 mg/dL (1.7-2.2) H 01/21/18 08:20 Total Bilirubin 1.3 mg/dL (0.2-1.3) 01/26/18 09:30 AST 20 U/L (17-59) 01/26/18 09:30 ALT 15 U/L (7-56) 01/26/18 09:30 Alkaline Phosphatase 85 U/L (38-126) 01/26/18 09:30 Troponin I < 0.01 ng/mL 01/21/18 16:00 NT-Pro-B Natriuret Pep 943 pg/mL (0-450) H 01/20/18 19:00 Total Protein 7.2 g/dL (5.8-8.3) 01/26/18 09:30 Albumin 3.7 g/dL (3.0-4.8) 01/26/18 09:30 Globulin 3.6 gm/dL 01/26/18 09:30 Albumin/Globulin Ratio 1.0 (1.1-1.8) L 01/26/18 09:30 Triglycerides 86 mg/dL (35-160) 01/21/18 08:20 Cholesterol 132 mg/dL (130-200) 01/21/18 08:20 LDL Cholesterol Direct 86 mg/dL (0-129) 01/21/18 08:20 HDL Cholesterol 21 mg/dL (29-60) L 01/21/18 08:20 Free T4 1.00 ng/dL (0.78-2.19) 01/21/18 01:15 Thyroxine (T4) 7.2 ug/dL (5.5-11.0) 01/21/18 01:15 Free T3 pg/mL 3.37 pg/mL (2.77-5.27) 01/21/18 01:15 TSH 3rd Generation 3.54 mIU/mL (0.46-4.68) 01/21/18 09:00 Venous Blood Potassium 5.1 mmol/L (3.6-5.2) 01/20/18 18:40 Urine Color Yellow (YELLOW) 01/20/18 19:23 Urine Appearance Clear (CLEAR) 01/20/18 19:23 Urine pH 6.0 (4.7-8.0) 01/20/18 19:23 Ur Specific [place] 1.010 (1.005-1.035) 01/20/18 19:23 Urine Protein Negative mg/dL (<30 mg/dL) 01/20/18 19:23 Urine Glucose (UA) Negative mg/dL (NEGATIVE) 01/20/18 19:23 Urine Ketones Negative mg/dL (NEGATIVE) 01/20/18 19:23 Urine Blood Negative (NEGATIVE) 01/20/18 19:23 Urine Nitrate Negative (NEGATIVE) 01/20/18 19:23 Urine Bilirubin Negative (NEGATIVE) 01/20/18 19:23 Urine Urobilinogen 0.2 E.U./dL (<1 E.U./dL) 01/20/18 19:23 Ur Leukocyte Esterase Negative [place]ricia/uL (NEGATIVE) 01/20/18 19:23 Stool Occult Blood Negative (NEGATIVE) 01/21/18 15:00 Hepatitis A IgM Ab Negative (NEGATIVE) 01/24/18 06:30 Hep Bs Antigen Negative (NEGATIVE) 01/24/18 06:30 Hep B Core IgM Ab Negative (NEGATIVE) 01/24/18 06:30 Hepatitis C Antibody Negative (NEGATIVE) 01/24/18 06:30 - Hospital Course Hospital Course: Patient is a 57 year old male with PMH of CHF (EF in 2015 64%), paroxysmal afib on warfarin, DM, and HTN presenting to the ED with shortness of breath for 1 week. Patient admitted for cardiomyopathy versus CHF-pEF. Patient was monitored on telemetry.Echo revealed EF 61%. No gross valvular abnormalities noted Nuclear stress test showed normal SPECT myocardial perfusion study with normal gated wall motion of the left ventricle. Previous cardiac cath in [facility] (2012): normal coronaries. Previous MUGA scan showed normal LV function. Patient was on lasix, BiPAP. In/out monitoring with volume loss daily. Patient has history of paroxysmal afib on coumadin currently rate controlled with metoprolol and cardizem. INR was monitored. Patient had distended abdomen. Abdominal US showed Hepatosplenomegaly and fatty liver.Hepatitis B and C negative. GI consulted and recommended weight loss and to consider bariatric surgery if cardiac risk acceptable. Patient had ycotic Toenails Podiatry consulted and did debridement of the nails that went well. Patient has HTN, diabetes that were managed medically during hospitalization. Patient was clinically stable and his symptom of SOB improved. Patient is medically optimized for discharge today. Adjustments were made to home medications, please look at discharge instructions below. On discharge: Please follow up with Dr. Bhatia on WednesdayJanuary 28 at 10:30am for post hospitalization follow up. This appointment has been made for you with Dr. Bhatia's office. Please discuss all medical issues addressed during this admission. You will need to obtain a prescription for an INR check at this appointment as your INR was low today and needs to be monitored. It was elevated on admission. Your dosing may need to be adjusted by your primary care doctor or director emergency department. Please follow up with your director emergency department within one week of discharge for post hospitalization follow up. Please discuss all medical issues addressed during this admission. We have decreased the dosage of your Lasix (water pill) from 160mg two times per day to 80mg twice per day. Please continue this dosage until you can have a discussion with Dr. Bhatia and your director emergency department about the dosage of this medication that is best suited for your needs. Please continue taking all other medications that you previously taking at home as prescribed. Please return to the emergency room if symptoms return. We encourage you to continue efforts with diet and exercise. Discharge Exam - Head Exam Head Exam: ATRAUMATIC, NORMAL INSPECTION, NORMOCEPHALIC - Eye Exam Eye Exam: Normal appearance, PERRL Pupil Exam: NORMAL ACCOMODATION - ENT Exam ENT Exam: Mucous Membranes Moist, Normal Oropharynx - Neck Exam Neck exam: Full Rom, Normal Inspection - Respiratory Exam Respiratory Exam: Clear to PA & Lateral, NORMAL BREATHING PATTERN - Cardiovascular Exam Cardiovascular Exam: +S1, +S2 - GI/Abdominal Exam GI & Abdominal Exam: Soft Additional comments: OBESE, NON TENDER - Extremities Exam Additional comments: 1+ B/L LL edema - Back Exam Back exam: FULL ROM, NORMAL INSPECTION - Neurological Exam Neurological exam: Alert, CN II-XII Intact, Normal Gait, Oriented x3, Reflexes Normal - Skin Skin Exam: Dry, Intact, Normal Color, Warm Discharge Plan - Discharge Medications Prescriptions: Albuterol HFA [Ventolin HFA 90 mcg/actuation (8 g)] 2 puff IH [id number] PRN #1 puff PRN Reason: Shortness Of Breath Budesonide/Formoterol Fumarate [Symbicort] 2 puff IH BID #1 aer RX: Furosemide [Lasix] 80 mg PO BID #14 tab RX: Warfarin Sodium 8 mg PO DAILY #6 tablet - Follow Up Plan Condition: STABLE Disposition: HOME/ ROUTINE Instructions: Heart Failure (DC) Additional Instructions: Please follow up with Dr. Bhatia on WednesdayJanuary 28 at 10:30am for post hospitalization follow up. This appointment has been made for you with Dr. Bhatia's office. Please discuss all medical issues addressed during this admission. You need to have your INR checked at this appointment. Your dose of coumadin may need to be adjusted by your primary care doctor or director emergency department. Your INR today is 1.65. Goal range is 2-3. Please continue your home coumadin dose starting tonight 01/28/18. You will also need need to be caught up with all flu and pneumonia vaccinations. Please follow up with your director emergency department within one week of discharge for post hospitalization follow up. Please discuss all medical issues addressed during this admission. Please follow up with a geophysical data technician within 7-10 day of discharge. Please discuss with him that you have been started on two new inhalers, home oxygen and that you have been recommended to have a sleep study and pulmonary rehabilitation. Your two new inhalers are Symbicort (two puffs twice a day e ) and Ventolin (as needed rescue inhaler that you should use for shortness of breath). We have decreased the dosage of your Lasix (water pill) from 160mg two times per day to 80mg twice per day. Please continue this dosage until you can have a discussion with Dr. Bhatia and your director emergency department about the dosage of this medication that is best suited for your needs. Please continue taking all other medications that you previously taking at home as prescribed. Please return to the emergency room if symptoms return. We encourage you to continue efforts with diet and exercise. Referrals: Escobar Bhatia MD [Family Provider] - Lowell Loya MD [Staff Provider] - <Randa Torres - Last Filed: 01/27/18 16:14> Provider - Provider Date of Admission: 01/21/18 13:25 Attending physician: Randa Torres, Hospital Course - Lab Results Lab Results: Most Recent Lab Values WBC 8.5 10^3/ul (4.5-11.0) 01/27/18 07:45 RBC 6.79 10^6/uL (3.5-6.1) H 01/27/18 07:45 Hgb 13.8 g/dL (14.0-18.0) L 01/27/18 07:45 Hct 51.2 % (42.0-52.0) 01/27/18 07:45 MCV 75.4 fl (80.0-105.0) L 01/27/18 07:45 MCH 20.3 pg (25.0-35.0) L 01/27/18 07:45 MCHC 27.0 g/dl (31.0-37.0) L 01/27/18 07:45 RDW 19.7 % (11.5-14.5) H 01/27/18 07:45 Plt Count 116 10^3/uL (120.0-450.0) L 01/27/18 07:45 Gran % 73.4 % (50.0-68.0) H 01/27/18 07:45 Lymph % (Auto) 8.6 % (22.0-35.0) L 01/27/18 07:45 [place] % (Auto) 11.5 % (1.0-6.0) H 01/27/18 07:45 Eos % (Auto) 6.4 % (1.5-5.0) H 01/27/18 07:45 Baso % (Auto) 0.1 % (0.0-3.0) 01/27/18 07:45 Gran # 6.23 (1.4-6.5) 01/27/18 07:45 Lymph # (Auto) 0.7 (1.2-3.4) L 01/27/18 07:45 [place] # (Auto) 1.0 (0.1-0.6) H 01/27/18 07:45 Eos # (Auto) 0.5 (0.0-0.7) 01/27/18 07:45 Baso # (Auto) 0.01 K/mm3 (0.0-2.0) 01/27/18 07:45 Neutrophils % (Manual) 92 % (50.0-70.0) H 01/21/18 08:20 Band Neutrophils % 1 % (0-2) 01/21/18 08:20 Lymphocytes % (Manual) 6 % (22.0-35.0) L 01/21/18 08:20 Monocytes % (Manual) 1 % (1.0-6.0) 01/21/18 08:20 Platelet Evaluation Normal (NORMAL) 01/21/18 08:20 Hypochromasia 2+ 01/21/18 08:20 PT 19.2 SECONDS (9.4-12.5) H 01/27/18 07:45 INR 1.65 01/27/18 07:45 APTT 33.7 Seconds (25.1-36.5) 01/27/18 07:45 D-Dimer, Quantitative < 200 ng/mlDDU (0-243) 01/20/18 19:00 pCO2 54 mm/Hg (35-45) H 01/21/18 06:36 pO2 46.0 mm/Hg (80-100) L 01/21/18 06:36 HCO3 31.2 mmol/L (21-28) H 01/21/18 06:36 ABG pH 7.37 (7.35-7.45) 01/21/18 06:36 ABG Total CO2 32.9 mmol.L (22-28) H 01/21/18 06:36 ABG O2 Saturation 79.8 % (95-98) L 01/21/18 06:36 ABG O2 Content 15.3 ML/dl (15-23) 01/21/18 06:36 ABG Base Excess 4.4 mmol/L (-2.0-3.0) H 01/21/18 06:36 ABG Hemoglobin 14.3 g/dL (11.7-17.4) 01/21/18 06:36 ABG Carboxyhemoglobin 3.7 % (0.5-1.5) H 01/21/18 06:36 POC ABG HHb (Measured) 19.2 % (0-5) H 01/21/18 06:36 ABG Methemoglobin 1.2 % (0.0-3.0) 01/21/18 06:36 ABG O2 Capacity 19.2 mL/dl (16-24) 01/21/18 06:36 VBG pH 7.28 (7.32-7.43) L 01/20/18 18:40 VBG pCO2 80.0 (40-60) H* 01/20/18 18:40 VBG HCO3 37.6 mmol/l (21-28) H 01/20/18 18:40 VBG Total CO2 40.1 mmol.L (22-28) H 01/20/18 18:40 VBG O2 Sat (Calc) 69.6 % (40-65) H 01/20/18 18:40 VBG Base Excess 7.7 mmol/L (0.0-2.0) H 01/20/18 18:40 VBG Potassium 5.1 mmol/L (3.6-5.2) 01/20/18 18:40 Hgb O2 Saturation 76.0 % (95.0-98.0) L 01/21/18 06:36 Sodium 141.0 mmol/L (132-148) 01/20/18 18:40 Chloride 103.0 mmol/L (98-107) 01/20/18 18:40 Glucose 95 mg/dl (75-110) 01/20/18 18:40 Lactate 1.7 mmol/L (0.7-2.1) 01/20/18 18:40 FiO2 21.0 % 01/21/18 06:36 Sodium 145 mmol/L (132-148) 01/27/18 07:45 Potassium 4.2 mmol/L (3.6-5.0) 01/27/18 07:45 Chloride 100 mmol/L (98-107) 01/27/18 07:45 Carbon Dioxide 39 mmol/L (21-33) H 01/27/18 07:45 Anion Gap 10 (10-20) 01/27/18 07:45 BUN 25 mg/dL (7-21) H 01/27/18 07:45 Creatinine 1.0 mg/dl (0.8-1.5) 01/27/18 07:45 Est GFR ( Amer) > 60 01/27/18 07:45 Est GFR (Non-Af Amer) > 60 01/27/18 07:45 POC Glucose (mg/dL) 116 mg/dL (65-110) H 01/27/18 11:12 Random Glucose 93 mg/dL (70-110) 01/27/18 07:45 Hemoglobin A1c 6.2 % (4.2-6.5) 01/21/18 08:20 Calcium 8.8 mg/dL (8.4-10.5) 01/27/18 07:45 Phosphorus 3.8 mg/dL (2.5-4.5) 01/21/18 08:20 Magnesium 2.5 mg/dL (1.7-2.2) H 01/21/18 08:20 Total Bilirubin 1.2 mg/dL (0.2-1.3) 01/27/18 07:45 AST 16 U/L (17-59) L 01/27/18 07:45 ALT 19 U/L (7-56) 01/27/18 07:45 Alkaline Phosphatase 92 U/L (38-126) 01/27/18 07:45 Troponin I < 0.01 ng/mL 01/21/18 16:00 NT-Pro-B Natriuret Pep 943 pg/mL (0-450) H 01/20/18 19:00 Total Protein 7.0 g/dL (5.8-8.3) 01/27/18 07:45 Albumin 3.6 g/dL (3.0-4.8) 01/27/18 07:45 Globulin 3.4 gm/dL 01/27/18 07:45 Albumin/Globulin Ratio 1.0 (1.1-1.8) L 01/27/18 07:45 Triglycerides 86 mg/dL (35-160) 01/21/18 08:20 Cholesterol 132 mg/dL (130-200) 01/21/18 08:20 LDL Cholesterol Direct 86 mg/dL (0-129) 01/21/18 08:20 HDL Cholesterol 21 mg/dL (29-60) L 01/21/18 08:20 Free T4 1.00 ng/dL (0.78-2.19) 01/21/18 01:15 Thyroxine (T4) 7.2 ug/dL (5.5-11.0) 01/21/18 01:15 Free T3 pg/mL 3.37 pg/mL (2.77-5.27) 01/21/18 01:15 TSH 3rd Generation 3.54 mIU/mL (0.46-4.68) 01/21/18 09:00 Venous Blood Potassium 5.1 mmol/L (3.6-5.2) 01/20/18 18:40 Urine Color Yellow (YELLOW) 01/20/18 19:23 Urine Appearance Clear (CLEAR) 01/20/18 19:23 Urine pH 6.0 (4.7-8.0) 01/20/18 19:23 Ur Specific [place] 1.010 (1.005-1.035) 01/20/18 19:23 Urine Protein Negative mg/dL (<30 mg/dL) 01/20/18 19:23 Urine Glucose (UA) Negative mg/dL (NEGATIVE) 01/20/18 19:23 Urine Ketones Negative mg/dL (NEGATIVE) 01/20/18 19:23 Urine Blood Negative (NEGATIVE) 01/20/18 19:23 Urine Nitrate Negative (NEGATIVE) 01/20/18 19:23 Urine Bilirubin Negative (NEGATIVE) 01/20/18 19:23 Urine Urobilinogen 0.2 E.U./dL (<1 E.U./dL) 01/20/18 19:23 Ur Leukocyte Esterase Negative Latricia/uL (NEGATIVE) 01/20/18 19:23 Stool Occult Blood Negative (NEGATIVE) 01/21/18 15:00 Hepatitis A IgM Ab Negative (NEGATIVE) 01/24/18 06:30 Hep Bs Antigen Negative (NEGATIVE) 01/24/18 06:30 Hep B Core IgM Ab Negative (NEGATIVE) 01/24/18 06:30 Hepatitis C Antibody Negative (NEGATIVE) 01/24/18 06:30 Attending/Attestation - Attestation I have personally seen and examined this patient.: Yes I have fully participated in the care of the patient.: Yes I have reviewed all pertinent clinical information, including history, physical exam and plan: Yes Notes (Text): Patient was initially for discharge. However, patient found to be hypoxemic on Room air. Will hold discharge, consult pulmonary, and evaluate for home oxygen. Please see progress note from same day.
--- NOTE | 2018-01-26 16:43 | CP.PCM.PCO ---
Addendum Addendum: 01/26/18 16:35 Patient's discharge cancelled at this time as he was found to have oxygen desaturation to 82% off of oxygen via nasal cannula. Will have further workup for need for home oxygen.
--- NOTE | 2018-01-26 22:20 | CP.PCM.PN ---
<Chong Walker - Last Filed: 01/27/18 13:45> Subjective - Date & Time of Evaluation Date of Evaluation: 01/26/18 Time of Evaluation: 09:55 - Subjective Subjective: Internal Medicine Progress Note(Hospitalist Service): Lillian PGY2 Patient seen and assessed at bedside. No overnight events noted by patient or nursing staff. Patient denies any complaints at this time including fevers, chills, headache, chest pain, SOB, cough, wheezing, abdominal pain, N/V/D/C, changes in urine output or skin changes. Objective - Vital Signs/Intake and Output Vital Signs (last 24 hours): Temp Pulse Resp BP Pulse Ox 98.1 F 61 19 127/54 L 98 01/26/18 18:00 01/26/18 18:03 01/26/18 18:00 01/26/18 21:54 01/26/18 06:00 Intake and Output: 01/26/18 01/27/18 18:59 06:59 Intake Total 2388 Output Total 2840 Balance -452 - Medications Medications: Current Medications Albuterol/Ipratropium (Duoneb 3 Mg/0.5 Mg (3 Ml) Ud) 3 ml IH Q2H PRN PRN Reason: Shortness of Breath Albuterol/Ipratropium (Duoneb 3 Mg/0.5 Mg (3 Ml) Ud) 3 ml IH [id number] [facility] Last Admin: 01/26/18 19:51 Dose: 3 ml Allopurinol (Zyloprim) 300 mg PO DAILY [facility] Last Admin: 01/26/18 09:14 Dose: 300 mg Diltiazem HCl (Cardizem) 60 mg PO TID [facility] Last Admin: 01/26/18 18:03 Dose: 60 mg Famotidine (Pepcid) 40 mg PO HS [facility] Last Admin: 01/26/18 21:54 Dose: 40 mg Furosemide (Lasix) 40 mg IVP Q12 [facility] Last Admin: 01/26/18 21:54 Dose: 40 mg Glimepiride (Amaryl) 2 mg PO DAILY [facility] Last Admin: 01/26/18 09:14 Dose: 2 mg Insulin Human Regular (Humulin R Low) 0 units SC ACHS [facility]; Protocol Last Admin: 01/26/18 21:54 Dose: Not Given Lactic Acid (Lac-Hydrin 12% Lotion (225 G)) 0 gm EXT BID [facility] Last Admin: 01/26/18 18:05 Dose: 1 applic Metoprolol Succinate (Toprol Xl) 100 mg PO BRK [facility] Last Admin: 01/26/18 09:13 Dose: 100 mg Prednisone (Prednisone Tab) 5 mg PO DAILY [facility] Last Admin: 01/26/18 09:14 Dose: 5 mg Warfarin Sodium (Coumadin) 8 mg PO 1800 [facility]; Protocol Last Admin: 01/26/18 18:02 Dose: 8 mg - Labs Labs: 01/26/18 09:30 01/26/18 09:30 PT 20.5 SECONDS (9.4-12.5) H 01/26/18 09:30 INR 1.76 01/26/18 09:30 APTT 35.1 Seconds (25.1-36.5) 01/26/18 09:30 - Constitutional Appears: Non-toxic, No Acute Distress, Other (Obese) - Head Exam Head Exam: ATRAUMATIC, NORMOCEPHALIC - Eye Exam Eye Exam: EOMI, Normal appearance, PERRL. absent: Conjunctival injection, Nystagmus, Periorbital swelling, Periorbital tenderness, Scleral icterus Pupil Exam: NORMAL ACCOMODATION, PERRL - ENT Exam ENT Exam: Mucous Membranes Moist - Neck Exam Neck Exam: Full ROM, Normal Inspection. absent: Lymphadenopathy, Meningismus, Tenderness, Thyromegaly - Respiratory Exam Respiratory Exam: Clear to Ausculation Bilateral, NORMAL BREATHING PATTERN. absent: Accessory Muscle Use, Chest Wall Tenderness, Decreased Breath Sounds, Prolonged Expiratory Phase, Rales, Rhonchi, Wheezes, Respiratory Distress, Stridor - Cardiovascular Exam Cardiovascular Exam: REGULAR RHYTHM, RRR, +S1, +S2. absent: Bradycardia, Tachycardia, Clicks, Diastolic murmur, Gallop, Irregular Rhythm, JVD, Rubs, +S4, Murmur - GI/Abdominal Exam GI & Abdominal Exam: Soft, Normal Bowel Sounds. absent: Bruit, Distended, Firm, Guarding, Rigid, Tenderness, Diminished Bowel Sounds, Hernia, Hyperactive Bowel Sounds, Hypoactive Bowel Sounds, Organomegaly, Pulsatile Mass, Rebound, Mass Additional comments: Obese abdomen - Extremities Exam Extremities Exam: Full ROM, Normal Capillary Refill, Pedal Edema (1+ pitting edema to mid calve bilaterally (chronic with no interval change)). absent: Calf Tenderness, Tenderness - Neurological Exam Neurological Exam: Alert, Awake, Oriented x3 - Psychiatric Exam Psychiatric exam: Normal Affect, Normal Mood - Skin Skin Exam: Dry, Intact, Normal Color, Warm Assessment and Plan - Assessment and Plan (Free Text) Assessment: 57 year old male with past medical history significant for CHF, paroxysmal atrial fibrillation on Coumadin, DM2, chronic venous stasis with lower extremity edema and HTN that presented with shortness of breath. Plan: 1. CHF Exacerbation -Nuclear Stress Test reviewed and normal -Echocardiogram noted to be technically limited d/t body habitus but showing normal LV function/size/EF, normal chamber sizes and no valvular abnormalities -Continue Lasix 40mg IVP Q12 -Cardiology consulted, all recommendations appreciated 2. COPD Exacerbation -Improved since admission -Continue Duonebs Q6H [facility] and Q2H PRN -Continue Prednisone 5mg daily -Continue supplemental oxygen at 2 liters/min -Home oxygen evaluation with 6MWT pending -Pulmonology and PT consulted, all recommendations appreciated 3. Paroxysmal Atrial Fibrillation -Continue Cardizem -Increased Coumadin dosage to home dose of 8mg -INR currently subtherapeutic -Continue to monitor with daily INR 4. PETERSEN -Continue low fat diet -Exercise recommendations provided and discussed with patient -GI consulted, all recommendations appreciated 5. NIDDM2 -Continue ISS-Low and Accuchecks ACHS -Continue Glimepiride 6. HTN -Continue Metoprolol 7. History of Gout -Continue Allopurinol GI Prophylaxis: Pepcid DVT Prophylaxis: Coumadin Diet: Heart Healthy Moderate Carbohydrate Consistent Disposition: Patient was originally scheduled for discharge today but was found to have oxygen desaturation to 82% by nursing staff off of supplemental oxygen. Discharge was then cancelled and patient pending workup for hypoxemia and need for home oxygen. Patient seen and case discussed with attending, Dr. Randa Torres. <Randa Torres R - Last Filed: 01/27/18 16:14> Objective - Vital Signs/Intake and Output Vital Signs (last 24 hours): Temp Pulse Resp BP Pulse Ox 97.5 F L 82 20 126/60 97 01/27/18 12:19 01/27/18 15:30 01/27/18 12:19 01/27/18 15:30 01/27/18 06:00 Intake and Output: 01/27/18 01/27/18 06:59 18:59 Intake Total 480 Output Total 2300 Balance -1820 - Medications Medications: Current Medications Albuterol/Ipratropium (Duoneb 3 Mg/0.5 Mg (3 Ml) Ud) 3 ml IH Q2H PRN PRN Reason: Shortness of Breath Albuterol/Ipratropium (Duoneb 3 Mg/0.5 Mg (3 Ml) Ud) 3 ml IH [id number] [facility] Last Admin: 01/27/18 13:55 Dose: 3 ml Allopurinol (Zyloprim) 300 mg PO DAILY [facility] Last Admin: 01/27/18 11:20 Dose: 300 mg Arformoterol Tartrate (Brovana) 15 mcg IH [id number] [facility] Budesonide (Pulmicort Respules) 0.5 mg IH [id number] [facility] Diltiazem HCl (Cardizem) 60 mg PO TID [facility] Last Admin: 01/27/18 15:30 Dose: 60 mg Famotidine (Pepcid) 40 mg PO HS [facility] Last Admin: 01/26/18 21:54 Dose: 40 mg Furosemide (Lasix) 40 mg IVP Q12 [facility] Last Admin: 01/27/18 11:21 Dose: 40 mg Glimepiride (Amaryl) 2 mg PO DAILY [facility] Last Admin: 01/27/18 11:21 Dose: 2 mg Insulin Human Regular (Humulin R Low) 0 units SC ACHS [facility]; Protocol Last Admin: 01/27/18 11:21 Dose: Not Given Lactic Acid (Lac-Hydrin 12% Lotion (225 G)) 0 gm EXT BID [facility] Last Admin: 01/26/18 18:05 Dose: 1 applic Metoprolol Succinate (Toprol Xl) 100 mg PO BRK [facility] Last Admin: 01/27/18 08:51 Dose: 100 mg Prednisone (Prednisone Tab) 5 mg PO DAILY [facility] Last Admin: 01/27/18 11:21 Dose: 5 mg Warfarin Sodium (Coumadin) 8 mg PO 1800 [facility]; Protocol Last Admin: 01/26/18 18:02 Dose: 8 mg - Labs Labs: 01/27/18 07:45 01/27/18 07:45 PT 19.2 SECONDS (9.4-12.5) H 01/27/18 07:45 INR 1.65 01/27/18 07:45 APTT 33.7 Seconds (25.1-36.5) 01/27/18 07:45 Attending/Attestation - Attestation I have personally seen and examined this patient.: Yes I have fully participated in the care of the patient.: Yes I have reviewed all pertinent clinical information, including history, physical exam and plan: Yes Notes (Text): NOte for 01/26/18. Patient seen and examined by me at 10:30AM with resident 01/26/18. Case including HPI, physical exam, and assessment and plan discussed with resident. Agree with above with following additions/corrections. Patient is a 57-year-old male with past medical history significant for CHF, paroxysmal atrial fibrillation on Coumadin, type 2 diabetes, and hypertension that presented to the emergency room with shortness of breath. Patient states that he is feeling fine. States that he has been ambulating in the room without getting short of breath. Still has not ambulated in the hallways. He denies any chest pain or palpitations. No dizziness or lightheadedness. No nausea or vomiting. No abdominal pain. No headaches. No dysuria. No diarrhea or constipation. Physical exam: Gen: Awake and alert sitting up in bed in no acute distress HEENT: Normocephalic, atraumatic. Extraocular muscles intact, pupils equal reactive. No scleral icterus. Oropharynx is pink and moist. Neck is supple. Cardiovascular: Normal rhythm. Normal S1, S2. No murmurs, rubs, or gallops appreciated Pulmonary: Normal respiratory effort. No rhonchi, rales, or wheezing appreciated. Gastrointestinal: Soft, nondistended. Nontender. Morbidly obese abdomen. Positive bowel sounds all 4 quadrants, no guarding. Musculoskeletal: Moves all extremities. No calf tenderness. No edema appreciated. Central nervous system: AAO x 3. CN 2-12 grossly intact Dermatologic: Skin warm and dry Assessment and plan: Patient is a 57-year-old male with past medical history significant for CHF, paroxysmal atrial fibrillation on Coumadin, type 2 diabetes, and hypertension that presented to the emergency room with shortness of breath. 1. CHF exacerbation, likely diastolic dysfunction. 2d Echo per mixer crane operator shows technically limited study due to body habitus, chamber sizes appear within normal limits, left ventricular systolic function appears normal, no gross valvular abnormalities noted. Cardiology following, recommendations appreciated. Continue with IV Lasix. Status post stress test which per mixer crane operator showed symptom limited stress test which was negative for chest pain, ischemia, and arrhythmia; poor exercise capacity. Nuclear scans per radiologist showed normal SPECT myocardial perfusion study, normal gated wall motion of the left ventricle. 2. Dyspnea. Likely multifactorial secondary to COPD and CHF exacerbation. Improved. Continue Lasix. Continue with nebulizer treatments and prednisone. 3. Paroxysmal atrial fibrillation. Continue Cardizem. Continue Coumadin. Will increase dose. INR is subtherapeutic. 4. Hepatosplenomegaly. Abdominal ultrasound per radiologist shows hepatosplenomegaly, fatty infiltration of the liver, nonspecific mild thickening of the gallbladder wall without cholelithiasis. Likely secondary to obese habitus. Patient counseled on diet and exercise. GI consulted, recommendations appreciated. 5. COPD exacerbation. Continue nebulizer treatments. Continue prednisone. Continue O2 via nasal cannula as needed. 6. Type 2 diabetes. Continue home Amaryl. Continue insulin sliding scale. C ontinue to monitor Accu-Cheks. 7. Hypertension. Continue Cardizem and metoprolol. 8. History of gout. Continue allopurinol. 9. GI/DVT prophylaxis. Pepcid/Coumadin Case was discussed in detail with the patient regarding current diagnosis and treatment plan. All questions answered Addendum: Patient was initially for discharge. However, patient found to be hypoxemic on Room air. Will hold discharge, consult pulmonary, and evaluate for home oxygen.
[2018-01-27 01:29] VITALS: RESP 20
[2018-01-27] MEDS: Albuterol-Ipratrop 3 mg / 0.5 (3 ml) UD IH SCH ×3 (02:20→13:55)
[2018-01-27 08:07] LABS: INR 1.65; PARTIAL THROMBOPLASTIN TIME 33.7 Seconds (25.1-36.5); PROTHROMBIN TIME 19.2 SECONDS (9.4-12.5)
[2018-01-27 08:21] LABS: BASO # 0.01 K/mm3 (0.0-2.0); BASO % 0.1 % (0.0-3.0); EOS # 0.5 (0.0-0.7); EOS % 6.4 % (1.5-5.0); GRAN # 6.23 (1.4-6.5); GRAN % 73.4 % (50.0-68.0); HEMOGLOBIN 13.8 g/dL (14.0-18.0); LYMPH # 0.7 (1.2-3.4); LYMPH % 8.6 % (22.0-35.0); MEAN CELL VOLUME 75.4 fl (80.0-105.0); MEAN CORPUSCULAR HEMOGLOBIN 20.3 pg (25.0-35.0); MONO % 11.5 % (1.0-6.0); PLATELET COUNT 116 10^3/uL (120.0-450.0); RBC 6.79 10^6/uL (3.5-6.1); RED CELL DISTRIBUTION WIDTH 19.7 % (11.5-14.5); WHITE BLOOD COUNT 8.5 10^3/ul (4.5-11.0)
[2018-01-27 08:24] LABS: ALBUMIN 3.6 g/dL (3.0-4.8); ALT/SGPT 19 U/L (7-56); AST/SGOT 16 U/L (17-59); BLOOD UREA NITROGEN 25 mg/dL (7-21); CALCIUM 8.8 mg/dL (8.4-10.5); GFR NON-AFRICAN AMERICAN > 60
[2018-01-27] MEDS: Insulin Reg-LOW-Coverage SC SCH ×2 (08:33→11:21)
[2018-01-27] MEDS: Metoprolol Succinate 100 mg XL Tab PO SCH (08:51)
[2018-01-27 09:23] VITALS: O2SAT 97
--- NOTE | 2018-01-27 14:48 | CON ---
DATE: 01/27/2018 HISTORY OF PRESENT ILLNESS: This is a 57-year-old gentleman who is morbidly obese, who presented to [facility] on 01/20/2018 with chief complaints of subacute increment in his shortness of breath and decrease in exercise tolerance. The patient was not able to walk even a few meters and had to take rest before continuing exertion. He has undergone a work-up by Cardiology Service (Dr. Dee, Dr. Esteban), who also performed myocardial stress test, (first exercise stress test, which the patient was not able to complete due to decreased tolerance to exertion and then perfusion stress test, which showed no signs of ischemic heart disease. It showed normal SPECT myocardial perfusion study, normal gated wall motion of the left ventricle). The patient substantially improved under care of primary medical group; however, at the end of his hospitalization was found to be hypoxemic at rest and more so on exertion requiring 3 L per minute of oxygen supplementation to maintain normoxemia. The patient was also found to be retaining carbon dioxide and initially presented with pH 7.32 and pCO2 around 70. Subsequently, his pH improved to 7.37; however, pCO2 remained elevated at 54. No nausea, no vomiting, no diarrhea, no constipation. No fever, no chills, no sweats. PAST MEDICAL HISTORY: Atrial fibrillation (the patient is on Coumadin), diabetes, hypertension, obesity hypoventilation syndrome. ALLERGIES: NKDA. CURRENT MEDICATIONS: DuoNeb p.r.n., allopurinol, DuoNeb every 6 hours, Cardizem 60 mg p.o. t.i.d., Pepcid, Lasix 40 mg IV every 12, Amaryl, regular insulin sliding scale low protocol, metoprolol, prednisone 5 mg p.o. daily, Coumadin. REVIEW OF SYSTEMS: Review of 12-organ systems other than mentioned in the history of present illness is negative. FAMILY HISTORY: Noncontributory. SOCIAL HISTORY: The patient was exposed to secondhand smoking; however, never smoked himself. No alcohol or illicit drug abuse. PHYSICAL EXAMINATION: VITAL SIGNS: Temperature 97.5, heart rate 78, blood pressure 126/60, respiratory rate 20. ENT: Head and neck atraumatic. LUNGS: Few crackles bilaterally. HEART: irregular rate and rhythm. S1, S2 distant. ABDOMEN: Soft, nontender and nondistended. MUSCULOSKELETAL: 1+ bilateral pedal and ankle edema. NEURO: The patient moves all extremities spontaneously. SKIN: Moist. PSYCH: The patient is alert, awake and oriented x3. LABORATORY DATA: ABG is 7.37/54/46 on room air. WBC 8.5, hemoglobin 13.8, platelet count 116, eosinophil count 6.4. Sodium 145, potassium 4.2, chloride 100, carbon dioxide 39, BUN 25, creatinine 1, glucose 116, AST 16, ALT 19. ProBNP 943. Chest x-ray showed bilateral vascular congestion. 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 The patient was treated with bronchodilators, steroids and substantially improved. He, however, remained hypoxemic at rest and on exertion requiring up to 3 L per minute of oxygen supplementation. The patient subjectively reports substantial improvement. The patient was also found to have eosinophilia in his blood. At present time, we will proceed with bronchodilators, inhaled corticosteroids and continuous steroid taper. The patient also has hypercapnia, even though his resporatory acidosis is mostly compensated, along with hypoxemia, most likely secondary to severe COPD and obesity hypoventilation syndrome with component of obstructive sleep apnea The patient would greatly benefit from using noninvasive ventilation to target volume control and reduce the elevated pCO2 levels that the patient has been experiencing. Without noninvasive ventilation, the patient might endure additional hospital admissions or even a life-threatening event. This plan has been discussed with the patient. Apparently, the patient needs to get sleep study done to rule out obstructive sleep apnea on top of obesity hypoventilation syndrome as well as other sleep disordered breathing including central sleep apneas as well. The patient definitely needs to see a swedger within 7-10 after discharge from the hospital to readjust his medication and inhalers. We will continue to target euvolemia, euglycemia, normothermia and oxygen saturation more than 90%. Pulmonary rehabilitation, physical therapy, using noninvasive positive pressure ventilation during the nighttime and maintaining oxygen saturation more than 93% during the daytime and nighttime would also be indicated. Infection prophylaxis with vaccination is also recommended. Plan above was discussed with the patient who verbalized the understanding. Need to continue with ICS (he has blood eosinophilia)/LABA and LAMA Benji Brito MD [facility] # [id number] [place]
[2018-01-27 16:29] VITALS: BP 138/76; PULSE 74; TEMP 97.6
--- NOTE | 2018-01-27 16:40 | CP.PCM.PN ---
Subjective - Date & Time of Evaluation Date of Evaluation: 01/27/18 Time of Evaluation: 16:38 - Subjective Subjective: Patient has chronic respiratory failure due to severe COPD Objective - Vital Signs/Intake and Output Vital Signs (last 24 hours): Temp Pulse Resp BP Pulse Ox 97.6 F 74 20 138/76 97 01/27/18 16:28 01/27/18 16:28 01/27/18 16:28 01/27/18 16:28 01/27/18 06:00 Intake and Output: 01/27/18 01/27/18 06:59 18:59 Intake Total 480 Output Total 2300 Balance -1820 - Medications Medications: Current Medications Albuterol/Ipratropium (Duoneb 3 Mg/0.5 Mg (3 Ml) Ud) 3 ml IH Q2H PRN PRN Reason: Shortness of Breath Albuterol/Ipratropium (Duoneb 3 Mg/0.5 Mg (3 Ml) Ud) 3 ml IH [id number] [facility] Last Admin: 01/27/18 13:55 Dose: 3 ml Allopurinol (Zyloprim) 300 mg PO DAILY [facility] Last Admin: 01/27/18 11:20 Dose: 300 mg Arformoterol Tartrate (Brovana) 15 mcg IH [id number] [facility] Budesonide (Pulmicort Respules) 0.5 mg IH [id number] [facility] Diltiazem HCl (Cardizem) 60 mg PO TID [facility] Last Admin: 01/27/18 15:30 Dose: 60 mg Famotidine (Pepcid) 40 mg PO HS [facility] Last Admin: 01/26/18 21:54 Dose: 40 mg Furosemide (Lasix) 40 mg IVP Q12 [facility] Last Admin: 01/27/18 11:21 Dose: 40 mg Glimepiride (Amaryl) 2 mg PO DAILY [facility] Last Admin: 01/27/18 11:21 Dose: 2 mg Insulin Human Regular (Humulin R Low) 0 units SC [facility]; Protocol Last Admin: 01/27/18 11:21 Dose: Not Given Lactic Acid (Lac-Hydrin 12% Lotion (225 G)) 0 gm EXT BID [facility] Last Admin: 01/26/18 18:05 Dose: 1 applic Metoprolol Succinate (Toprol Xl) 100 mg PO BRK [facility] Last Admin: 01/27/18 08:51 Dose: 100 mg Prednisone (Prednisone Tab) 5 mg PO DAILY [facility] Last Admin: 01/27/18 11:21 Dose: 5 mg Warfarin Sodium (Coumadin) 8 mg PO 1800 [facility]; Protocol Last Admin: 01/26/18 18:02 Dose: 8 mg - Labs Labs: 01/27/18 07:45 01/27/18 07:45 PT 19.2 SECONDS (9.4-12.5) H 01/27/18 07:45 INR 1.65 01/27/18 07:45 APTT 33.7 Seconds (25.1-36.5) 01/27/18 07:45
--- NOTE | 2018-01-27 16:45 | CP.PCM.DIS ---
Provider - Provider Date of Admission: 01/21/18 13:25 Attending physician: Randa Torres DO Primary care physician: Dr. Bhatia Consults: Cardio: Dr. Loya Podiatry: Dr. Schmidt GI: Dr. Ramirez Pulmonology: Dr. Brito Time Spent in preparation of Discharge (in minutes): 58 Diagnosis - Discharge Diagnosis (1) COPD (chronic obstructive pulmonary disease) Status: Acute (2) Paroxysmal atrial fibrillation Status: Chronic (3) Obesity hypoventilation syndrome Status: Chronic Hospital Course - Lab Results Lab Results: Most Recent Lab Values WBC 8.5 10^3/ul (4.5-11.0) 01/27/18 07:45 RBC 6.79 10^6/uL (3.5-6.1) H 01/27/18 07:45 Hgb 13.8 g/dL (14.0-18.0) L 01/27/18 07:45 Hct 51.2 % (42.0-52.0) 01/27/18 07:45 MCV 75.4 fl (80.0-105.0) L 01/27/18 07:45 MCH 20.3 pg (25.0-35.0) L 01/27/18 07:45 MCHC 27.0 g/dl (31.0-37.0) L 01/27/18 07:45 RDW 19.7 % (11.5-14.5) H 01/27/18 07:45 Plt Count 116 10^3/uL (120.0-450.0) L 01/27/18 07:45 Gran % 73.4 % (50.0-68.0) H 01/27/18 07:45 Lymph % (Auto) 8.6 % (22.0-35.0) L 01/27/18 07:45 [place] % (Auto) 11.5 % (1.0-6.0) H 01/27/18 07:45 Eos % (Auto) 6.4 % (1.5-5.0) H 01/27/18 07:45 Baso % (Auto) 0.1 % (0.0-3.0) 01/27/18 07:45 Gran # 6.23 (1.4-6.5) 01/27/18 07:45 Lymph # (Auto) 0.7 (1.2-3.4) L 01/27/18 07:45 [place] # (Auto) 1.0 (0.1-0.6) H 01/27/18 07:45 Eos # (Auto) 0.5 (0.0-0.7) 01/27/18 07:45 Baso # (Auto) 0.01 K/mm3 (0.0-2.0) 01/27/18 07:45 Neutrophils % (Manual) 92 % (50.0-70.0) H 01/21/18 08:20 Band Neutrophils % 1 % (0-2) 01/21/18 08:20 Lymphocytes % (Manual) 6 % (22.0-35.0) L 01/21/18 08:20 Monocytes % (Manual) 1 % (1.0-6.0) 01/21/18 08:20 Platelet Evaluation Normal (NORMAL) 01/21/18 08:20 Hypochromasia 2+ 01/21/18 08:20 PT 19.2 SECONDS (9.4-12.5) H 01/27/18 07:45 INR 1.65 01/27/18 07:45 APTT 33.7 Seconds (25.1-36.5) 01/27/18 07:45 D-Dimer, Quantitative < 200 ng/mlDDU (0-243) 01/20/18 19:00 pCO2 54 mm/Hg (35-45) H 01/21/18 06:36 pO2 46.0 mm/Hg (80-100) L 01/21/18 06:36 HCO3 31.2 mmol/L (21-28) H 01/21/18 06:36 ABG pH 7.37 (7.35-7.45) 01/21/18 06:36 ABG Total CO2 32.9 mmol.L (22-28) H 01/21/18 06:36 ABG O2 Saturation 79.8 % (95-98) L 01/21/18 06:36 ABG O2 Content 15.3 ML/dl (15-23) 01/21/18 06:36 ABG Base Excess 4.4 mmol/L (-2.0-3.0) H 01/21/18 06:36 ABG Hemoglobin 14.3 g/dL (11.7-17.4) 01/21/18 06:36 ABG Carboxyhemoglobin 3.7 % (0.5-1.5) H 01/21/18 06:36 POC ABG HHb (Measured) 19.2 % (0-5) H 01/21/18 06:36 ABG Methemoglobin 1.2 % (0.0-3.0) 01/21/18 06:36 ABG O2 Capacity 19.2 mL/dl (16-24) 01/21/18 06:36 VBG pH 7.28 (7.32-7.43) L 01/20/18 18:40 VBG pCO2 80.0 (40-60) H* 01/20/18 18:40 VBG HCO3 37.6 mmol/l (21-28) H 01/20/18 18:40 VBG Total CO2 40.1 mmol.L (22-28) H 01/20/18 18:40 VBG O2 Sat (Calc) 69.6 % (40-65) H 01/20/18 18:40 VBG Base Excess 7.7 mmol/L (0.0-2.0) H 01/20/18 18:40 VBG Potassium 5.1 mmol/L (3.6-5.2) 01/20/18 18:40 Hgb O2 Saturation 76.0 % (95.0-98.0) L 01/21/18 06:36 Sodium 141.0 mmol/L (132-148) 01/20/18 18:40 Chloride 103.0 mmol/L (98-107) 01/20/18 18:40 Glucose 95 mg/dl (75-110) 01/20/18 18:40 Lactate 1.7 mmol/L (0.7-2.1) 01/20/18 18:40 FiO2 21.0 % 01/21/18 06:36 Sodium 145 mmol/L (132-148) 01/27/18 07:45 Potassium 4.2 mmol/L (3.6-5.0) 01/27/18 07:45 Chloride 100 mmol/L (98-107) 01/27/18 07:45 Carbon Dioxide 39 mmol/L (21-33) H 01/27/18 07:45 Anion Gap 10 (10-20) 01/27/18 07:45 BUN 25 mg/dL (7-21) H 01/27/18 07:45 Creatinine 1.0 mg/dl (0.8-1.5) 01/27/18 07:45 Est GFR ( Amer) > 60 01/27/18 07:45 Est GFR (Non-Af Amer) > 60 01/27/18 07:45 POC Glucose (mg/dL) 98 mg/dL (65-110) 01/27/18 16:06 Random Glucose 93 mg/dL (70-110) 01/27/18 07:45 Hemoglobin A1c 6.2 % (4.2-6.5) 01/21/18 08:20 Calcium 8.8 mg/dL (8.4-10.5) 01/27/18 07:45 Phosphorus 3.8 mg/dL (2.5-4.5) 01/21/18 08:20 Magnesium 2.5 mg/dL (1.7-2.2) H 01/21/18 08:20 Total Bilirubin 1.2 mg/dL (0.2-1.3) 01/27/18 07:45 AST 16 U/L (17-59) L 01/27/18 07:45 ALT 19 U/L (7-56) 01/27/18 07:45 Alkaline Phosphatase 92 U/L (38-126) 01/27/18 07:45 Troponin I < 0.01 ng/mL 01/21/18 16:00 NT-Pro-B Natriuret Pep 943 pg/mL (0-450) H 01/20/18 19:00 Total Protein 7.0 g/dL (5.8-8.3) 01/27/18 07:45 Albumin 3.6 g/dL (3.0-4.8) 01/27/18 07:45 Globulin 3.4 gm/dL 01/27/18 07:45 Albumin/Globulin Ratio 1.0 (1.1-1.8) L 01/27/18 07:45 Triglycerides 86 mg/dL (35-160) 01/21/18 08:20 Cholesterol 132 mg/dL (130-200) 01/21/18 08:20 LDL Cholesterol Direct 86 mg/dL (0-129) 01/21/18 08:20 HDL Cholesterol 21 mg/dL (29-60) L 01/21/18 08:20 Free T4 1.00 ng/dL (0.78-2.19) 01/21/18 01:15 Thyroxine (T4) 7.2 ug/dL (5.5-11.0) 01/21/18 01:15 Free T3 pg/mL 3.37 pg/mL (2.77-5.27) 01/21/18 01:15 TSH 3rd Generation 3.54 mIU/mL (0.46-4.68) 01/21/18 09:00 Venous Blood Potassium 5.1 mmol/L (3.6-5.2) 01/20/18 18:40 Urine Color Yellow (YELLOW) 01/20/18 19:23 Urine Appearance Clear (CLEAR) 01/20/18 19:23 Urine pH 6.0 (4.7-8.0) 01/20/18 19:23 Ur Specific [place] 1.010 (1.005-1.035) 01/20/18 19:23 Urine Protein Negative mg/dL (<30 mg/dL) 01/20/18 19:23 Urine Glucose (UA) Negative mg/dL (NEGATIVE) 01/20/18 19:23 Urine Ketones Negative mg/dL (NEGATIVE) 01/20/18 19:23 Urine Blood Negative (NEGATIVE) 01/20/18 19:23 Urine Nitrate Negative (NEGATIVE) 01/20/18 19:23 Urine Bilirubin Negative (NEGATIVE) 01/20/18 19:23 Urine Urobilinogen 0.2 E.U./dL (<1 E.U./dL) 01/20/18 19:23 Ur Leukocyte Esterase Negative Latricia/uL (NEGATIVE) 01/20/18 19:23 Stool Occult Blood Negative (NEGATIVE) 01/21/18 15:00 Hepatitis A IgM Ab Negative (NEGATIVE) 01/24/18 06:30 Hep Bs Antigen Negative (NEGATIVE) 01/24/18 06:30 Hep B Core IgM Ab Negative (NEGATIVE) 01/24/18 06:30 Hepatitis C Antibody Negative (NEGATIVE) 01/24/18 06:30 - Hospital Course Hospital Course: 57 year old male with a past medical history significant for CHF (EF in 2015 64%), paroxysmal afib on warfarin, DM2, and HTN who presented to the ED with shortness of breath for 1 week and was admitted for likely CHF-pEF exacerbation. Patient was placed on telemetry monitoring. He was started on Lasix 40mg IVP BID. An echo revealed an EF 61% with normal sized chambers and no valvular abnormalities but noted to be technically limited due to body habitus. Cardiology was consulted and recommended a nuclear stress test which was officially read as normal SPECT myocardial perfusion study with normal gated wall motion of the left ventricle. Cardiology recommended patient be discharged home with medical management as already ordered at home with recommendations that patient take 80mg of Lasix BID instead of 160mg Lasix BID until this can be discussed between patient and his primary care doctor as an outpatient. Patient was maintained on his home dose of Cardizem for his paroxysmal atrial fibrillation while admitted. Patient was found to have a supratherapeutic INR and his home dose of Coumadin was reduced from 8mg to 5mg while inpatient. His INR downtrended to subtherapeutic range and cardiology recommended that he go home on his normal dose of 8mg with an INR check at his primary's office within 2-3 days. He was noted to have abdominal distention and an abdominal US was ordered that showed hepatosplenomegaly with hepatic steatosis. GI was consulted and recommended diet/lifestyle modifications and to consider bariatric surgery if cardiac risk acceptable. Patient was maintained on supplemental oxygen while an inpatient at 3 liters per minute with adequate oxygen saturation. He was also given scheduled and as needed Duoneb breathing treatments. However, patient was found to have oxygen desaturation to 82% on room air at rest and subsequently failed a six minute walk test. This was attributed to COPD versus obesity related hypoventilation vs. asthma. Pulmonology was consulted and recommended home oxygen, BiPAP nightly, steroid taper, ICS, LABA, and JASPER PRN as well as sl eep study and pulmonary rehabilitation as an outpatient with pulmonology follow up within 7 days. Home oxygen and nightly BiPAP were started and set up for patient prior to discharge. Of note, patient refused BiPAP nightly while an inpatient as it was too uncomfortable despite extensive discussions regarding all expected benefits from doing so and possible risks of not doing so. Patient had mycotic toenails and podiatry consulted and did debridement of the nails without complications. Patients DM2 was managed with ISS ACHS, Amaryl and accuchecks ACHS with good glycemic control. Patient remained hemodynamically stable and was discharged on 01/27/18 with instructions as written below in discharge instructions. - Date & Time of H&P Date of H&P: 01/21/18 Time of H&P: 00:07 Discharge Exam - Head Exam Head Exam: ATRAUMATIC, NORMOCEPHALIC - Eye Exam Eye Exam: EOMI, Normal appearance, PERRL Pupil Exam: NORMAL ACCOMODATION, PERRL - ENT Exam ENT Exam: Mucous Membranes Moist - Neck Exam Neck exam: Full Rom, Normal Inspection - Respiratory Exam Respiratory Exam: Clear to PA & Lateral, NORMAL BREATHING PATTERN, UNREMARKABLE - Cardiovascular Exam Cardiovascular Exam: REGULAR RHYTHM - GI/Abdominal Exam GI & Abdominal Exam: Normal Bowel Sounds, Soft, Unremarkable. absent: Tenderness - Extremities Exam Extremities exam: normal capillary refill, pedal edema (1+ pitting edema (chronic with interval improvement noted)), pedal pulses present - Neurological Exam Neurological exam: Alert, Oriented x3 - Psychiatric Exam Psychiatric exam: Normal Affect, Normal Mood - Skin Skin Exam: Dry, Intact, Normal Color, Warm Discharge Plan - Discharge Medications Prescriptions: Albuterol HFA [Ventolin HFA 90 mcg/actuation (8 g)] 2 puff IH [id number] PRN #1 puff PRN Reason: Shortness Of Breath Budesonide/Formoterol Fumarate [Symbicort] 2 puff IH BID #1 aer Furosemide [Lasix] 80 mg PO BID #14 tab predniSONE [predniSONE Tab] 5 mg PO DAILY #5 tab Warfarin Sodium 8 mg PO DAILY #6 tablet - Follow Up Plan Condition: STABLE Disposition: HOME/ ROUTINE Instructions: Heart Failure (DC), Heart Failure (GEN), Pacemaker (DC), Pacemaker (GEN), Pulmonary Edema (DC), Pulmonary Edema (GEN), Ascites (DC), Ascites (GEN) Additional Instructions: Please follow up with Dr. Bhatia on WednesdayJanuary 28 at 10:30am for post hospitalization follow up. This appointment has been made for you with Dr. Bhatia's office. Please discuss all medical issues addressed during this admission. You need to have your INR checked at this appointment. Your dose of coumadin may need to be adjusted by your primary care doctor or piercer operator. Your INR today is 1.65. Goal range is 2-3. Please continue your home coumadin dose starting tonight 01/28/18. You will also need need to be caught up with all flu and pneumonia vaccinations. Please follow up with your piercer operator within one week of discharge for post hospitalization follow up. Please discuss all medical issues addressed during this admission. Please follow up with a aluminum welder within 7 days of discharge. Please discuss with him that you have been started on two new inhalers, home oxygen and that you have been recommended to have a sleep study and pulmonary rehabilitation. Your two new inhalers are Symbicort (two puffs twice a day everyday) and Ventolin (as needed rescue inhaler that you should use for shortness of breath). Please use your Triliogy (BIPAP) machine at home as instructed. We have decreased the dosage of your Lasix (water pill) from 160mg two times per day to 80mg twice per day. Please continue this dosage until you can have a discussion with Dr. Bhatia and your piercer operator about the dosage of this medication that is best suited for your needs. Please continue taking all other medications that you previously taking at home as prescribed. Please return to the emergency room if symptoms return. We encourage you to continue efforts with diet and exercise. Referrals: Escobar Bhatia MD [Family Provider] - Lowell Loya MD [Staff Provider] -
[2018-01-27] MEDS ORDERED: Budesonide 0.5 mg/2 ml Inhal Susp UD IH SCH (20:00)
[2018-01-27] MEDS ORDERED: Arformoterol 15 mcg/2 ml Inh Sol IH SCH (20:00)
== END 2018-01-27 18:00 | disposition home or self-care (01) | DRG 292 ==
LOC: ED 18:01 → ERH 20:52 → 2RSO 23:02 → OBSVTOIN 01-21 13:25 → 2RSO 01-27 09:32
PROVIDERS: ADMIT Internal Medicine; ATTEND Hospitalist
PROC: 0HBRXZZ Excision of Toe Nail, External Approach (ICD-10-PCS; principal; 2018-01-21)
PROC: 0HBRXZZ Excision of Toe Nail, External Approach (ICD-10-PCS; 2018-01-21)
PROC: 0HBRXZZ Excision of Toe Nail, External Approach (ICD-10-PCS; 2018-01-21)
PROC: 0HBRXZZ Excision of Toe Nail, External Approach (ICD-10-PCS; 2018-01-21)
PROC: 0HBRXZZ Excision of Toe Nail, External Approach (ICD-10-PCS; 2018-01-21)
PROC: 0HBRXZZ Excision of Toe Nail, External Approach (ICD-10-PCS; 2018-01-21)
PROC: 0HBRXZZ Excision of Toe Nail, External Approach (ICD-10-PCS; 2018-01-21)
PROC: 0HBRXZZ Excision of Toe Nail, External Approach (ICD-10-PCS; 2018-01-21)
PROC: 0HBRXZZ Excision of Toe Nail, External Approach (ICD-10-PCS; 2018-01-21)
PROC: 0HBRXZZ Excision of Toe Nail, External Approach (ICD-10-PCS; 2018-01-21)
DX: I11.0 Hypertensive heart disease with heart failure (principal); J44.1 Chronic obstructive pulmonary disease with (acute) exacerbation; E87.4 Mixed disorder of acid-base balance; R18.8 Other ascites; Z68.43 Body mass index [BMI] 50.0-59.9, adult; I50.33 Acute on chronic diastolic (congestive) heart failure; I42.0 Dilated cardiomyopathy; I48.0 Paroxysmal atrial fibrillation; E87.5 Hyperkalemia; E11.9 Type 2 diabetes mellitus without complications; F10.10 Alcohol abuse, uncomplicated; E66.01 Morbid (severe) obesity due to excess calories; Z87.891 Personal history of nicotine dependence; K76.0 Fatty (change of) liver, not elsewhere classified; M10.9 Gout, unspecified; Z79.01 Long term (current) use of anticoagulants; Z80.52 Family history of malignant neoplasm of bladder; I51.7 Cardiomegaly; R40.2412 Glasgow coma scale score 13-15, at arrival to emergency department; R16.2 Hepatomegaly with splenomegaly, not elsewhere classified; B35.1 Tinea unguium